=== PATIENT | female | born 1960 | race Caucasian/White ===

== ENCOUNTER → 2017-11-26 08:08 | Outpatient (CLI) | payer BC, SELFPAY ==
--- NOTE | 2017-11-26 | DI.US.S_ITS ---
PROCEDURE: US PELVIC COMPLETE INDICATIONS: FOLLOW UP INTRAMURAL UTERINE FIBROIDS TECHNIQUE: Real-time scanning was performed of the pelvic organs, with image documentation. Additional endovaginal scanning was necessary due to incomplete visualization of the adnexal and endometrial structures by transabdominal scanning. COMPARISON: [facility] Ultrasound, US, US PELVIC+TRANSVAG, 03/27/2016, 13:31. [facility] Ultrasound, US, US PELVIC+TRANSVAG, 06/04/2016, 11:10. FINDINGS: Transabdominal scanning: Limited scanning through the kidneys shows no hydronephrosis. The kidneys measure 10.2 CM right and 12.4 CM left. No pathologic free abdominal or pelvic fluid. Endovaginal scanning: Uterus: Uterus is enlarged in size at 7.4 x 9.1 x 9.6 cm. The endometrium is again obscured by the large mid posterior/fundal intramural fibroid that measures 5.0 x 5.4 x 7.5 cm on current exam compared to 5.6 x 7.3 x 7.5 cm on both prior studies. Ovaries: Ovaries are nonvisualized despite transvaginal imaging. IMPRESSION: 1. Uterine enlargement secondary to large solitary fibroid which is stable to slightly smaller in size. 2. Ovaries are nonvisualized. Dictated by: Ramos Lagos M.D. on 11/26/2017 at 9:10 Approved by: Ramos Lagos M.D. on 11/26/2017 at 9:16
== END ==
PROVIDERS: Family Provider Family Medicine; PCP Family Medicine; Visit Provider Family Medicine
DX: D25.1 Intramural leiomyoma of uterus (principal)
CPT/HCPCS: 76830; 76856

== ENCOUNTER 2017-12-19 08:54 | Emergency (ER) | payer BC, SELFPAY ==
--- NOTE | 2017-12-19 09:42 | ED.HEATRA ---
HPI - Head Injury General Chief complaint: Fall Stated complaint: Fell this morning, hit head Time Seen by Provider: 12/19/17 08:55 Source: patient Mode of arrival: ambulatory Limitations: no limitations History of Present Illness HPI Narrative: Patient is a 57-year-old female who presents after a ground level fall. 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 It is not uncommon for her to fall. She did not lose consciousness she has no nausea vomiting. She has 2 lacerations on the back of her head. She has no other injuries. No neck pain he is not on any blood thinners or anticoagulation MD Complaint: head injury Related Data Home Medications Medication Instructions Recorded Confirmed LEVOTHYROXINE SODIUM (SYNTHROID) 0.125 mg PO QDAY #0 12/14/11 levetiracetam [Keppra] 500 mg PO BID #0 12/14/11 BUDESONIDE NASAL SPRAY (RHINOCORT 1 spray INTRANASAL QDAY #0 12/18/11 AQ 32 MCG) Allergies Allergy/AdvReac Type Severity Reaction Status Date / Time No Known Drug Allergies Allergy Verified 12/19/17 09:48 Review of Systems Review of Systems GENERAL: Denies chills, fatigue, malaise, fever, sweats, travel HEENT: Denies sinus pain, ear pain, sore throat, difficulty swallowing, neck pain RESPIRATORY: Denies dyspnea, cough, wheezing, hemoptysis, sputum. CARDIOVASCULAR: Denies chest pain, palpitations, orthopnea, edema GASTROINTESTINAL: Denies nausea, vomiting, abdominal pain, diarrhea, constipation, melena. : Denies dysuria, frequency, incontinence, hematuria, urinary retention, flank pain. MUSCULOSKELETAL: Denies weakness, joint pain, or bony pain SKIN: See HPI NEUROLOGIC: See HPI PSYCHIATRIC: No concerning psychosocial issues. 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 HEAD: No crepitations no depressions, 2 lacerations 1 is 2.5 cm and 1 is 3 cm NECK: Supple no vertebral tenderness no step-offs full range of motion CARDIOVASCULAR: peripheral pulses in tact, cap refill <2 sec RESPIRATORY: No respiratory distress, speaks in full sentences without difficulty EXTREMITIES: Normal range of motion, no clubbing or edema. Neurovascularly intact NEUROLOGICAL: Cranial nerves II through XII grossly intact. Normal gait and speech. SKIN: Scalp lacerations as described Procedures Laceration Repair Laceration 1: Site: scalp Size (cm): 3 Description: linear Depth: simple, single layer Local Anesthetic: lidocaine 1% and with epi Amount of anesthesia used (mL): 3 Pre-repair: wound explored, irrigated extensively and deep structures intact Skin layer closed with: other (aaron 3) Laceration 2: Site: scalp Size (cm): 2.5 Description: flap Depth: simple, single layer Local Anesthetic: lidocaine 1% and with epi Amount of anesthesia used (mL): 2 Pre-repair: wound explored, irrigated extensively and deep structures intact Skin layer closed with: other (aaron 3) Course Vital Signs - 8 hr 12/19/17 09:43 Temperature 98.4 F Pulse Rate 74 Respiratory Rate 16 Blood Pressure 127/70 H Pulse Oximetry 100 Discharge Plan Departure Patient Disposition: Home Clinical Impression: Laceration of head Instructions: DI for Laceration Repair -- Aaron Activity Restrictions/Additional Instructions: 1. Have your stable removed in 5-7 days, you may go to walk-in clinic, return to the ER or call your primary care physician. 2. No soaking in water including dishes, bathtubs, Lakes, swimming pools etc 3. Signs of infection include, but not limited to, increased redness, increased swelling, increased pain, fever and purulent drainage, if the symptoms should arise, you may need an antibiotic and you should have a reevaluation either by your primary care provider or by the emergency department. Prescriptions: No Action levetiracetam [Keppra] 500 MG tablet 500 mg PO BID Qty: 0 RF: 0 LEVOTHYROXINE SODIUM (SYNTHROID) 0.125 mg PO QDAY Qty: 0 RF: 0 BUDESONIDE NASAL SPRAY (RHINOCORT AQ 32 MCG) 1 spray Intranasal QDAY Qty: 0 RF: 0 Referrals: Adin Morales MD [Primary Care Provider] -
[2017-12-19 09:43] VITALS: BP 127/70; PULSE 74; RESP 16; TEMP 36.9; O2SAT 100
== END 2017-12-19 10:00 | disposition home or self-care (01) ==
PROVIDERS: Emergency Provider Emergency Medicine; Family Provider Family Medicine; PCP Family Medicine
DX: S01.01XA Laceration without foreign body of scalp, initial encounter (principal); W19.XXXA Unspecified fall, initial encounter
CPT/HCPCS: 12002; 99282

== ENCOUNTER → 2018-08-07 10:01 | Outpatient (CLI) | payer OTHER, SELFPAY ==
--- NOTE | 2018-08-07 | DI.MG.S_ITS ---
BILATERAL DIGITAL SCREENING MAMMOGRAM 3D/2D WITH CAD: 08/07/2018 CLINICAL: Routine screening. Comparison is made to exams dated: 07/26/2017 mammogram, 06/24/2015 mammogram, and 11/20/2013 mammogram - [facility]. The tissue of both breasts is extremely dense, which lowers the sensitivity of mammography. Current study was also evaluated with a Computer Aided Detection (CAD) system. There are benign diffuse calcifications in both breasts. No significant masses, calcifications, or other findings are seen in either breast. There has been no significant interval change. IMPRESSION: There is no mammographic evidence of malignancy. A 1 year screening mammogram is recommended. This exam was interpreted at Station ID: [id number]. NOTE: For mammograms, a report in lay terms will be sent to the patient. Approximately 15% of breast malignancies will not be visualized mammographically. In the management of a palpable breast mass, a negative mammogram must not discourage biopsy of a clinically suspicious lesion. Electronically Signed By: Cheng ruiz/evan:08/07/2018 10:54:25 letter sent: Normal Exam ACR BI-RADS Category 2: Benign Finding(s) [id number]
== END ==
PROVIDERS: PCP Family Medicine; Visit Provider Family Medicine
DX: Z12.31 Encounter for screening mammogram for malignant neoplasm of breast (principal)
CPT/HCPCS: 77063; 77067

== ENCOUNTER 2018-09-22 12:33 | Emergency (ER) | payer OTHER, SELFPAY ==
[2018-09-22 12:37] VITALS: BP 120/76; PULSE 69; RESP 15; TEMP 36.8; O2SAT 98; BMI 25.0
--- NOTE | 2018-09-22 14:52 | ED_ITS ---
HPI - Fall General Chief Complaint: Fall Stated Complaint: hit head 30 minutes ago Time Seen by Provider: 09/22/18 13:01 Source: patient Mode of arrival: ambulatory Limitations: no limitations History of Present Illness HPI Narrative: Patient states she was walking with her dog on sidewalk, when the dog jerked away while patient was bending over, and cause the patient to fall flat on her back. Patient struck her head on the sidewalk, and noted a wound, but did not lose consciousness. Patient states that other than scrapes and bruises, she was not hurt any other place. Patient denies any dizziness or headache. No visual changes. No neurologic deficits. No other complaints at this time. Related Data Home Medications Medication Instructions Recorded Confirmed LEVOTHYROXINE SODIUM (SYNTHROID) 0.125 mg PO QDAY #0 12/14/11 levetiracetam [Keppra] 500 mg PO BID #0 12/14/11 BUDESONIDE NASAL SPRAY (RHINOCORT 1 spray INTRANASAL QDAY #0 12/18/11 AQ 32 MCG) Allergies Allergy/AdvReac Type Severity Reaction Status Date / Time No Known Drug Allergies Allergy Verified 09/22/18 12:37 Review of Systems Constitutional Denies chills, Denies fever(s), Denies lethargy and Denies weakness Eyes Denies change in vision, Denies eye discharge, Denies irritation and Denies loss of vision ENT Ears, Nose, Mouth, and Throat: Denies change in voice, Denies neck pain and Denies sore throat Comments: Head injury Cardiovascular Denies chest pain, Denies irregular heart rhythm, Denies lightheadedness, Denies palpitations, Denies dyspnea, Denies dyspnea on exertion and Denies orthopnea Respiratory Denies cough, Denies dyspnea, Denies dyspnea on exertion and Denies wheezing Gastrointestinal Gastrointestinal: Denies abdominal pain, Denies change in bowel habits, Denies diarrhea, Denies nausea and Denies vomiting Genitourinary Denies hematuria, Denies flank pain, Denies urinary incontinence and Denies urinary urgency Musculoskeletal Denies neck pain Integumentary/Breasts Denies pruritus, Denies erythema, Denies rash and Denies wounds Neurologic Denies confusion, Denies loss of vision and Denies weakness Psychiatric Denies anxiety, Denies confusion, Denies depression, Denies homicidal ideation and Denies suicidal ideation Endocrine Denies palpitations Hematologic/Lymphatic Denies easy bruising Allergic/Immunologic Denies wheezing Exam Initial Vital Signs Initial Vital Signs: Vital Signs Temperature 98.3 F 09/22/18 12:37 Pulse Rate 69 09/22/18 12:37 Respiratory Rate 15 09/22/18 12:37 Blood Pressure 120/76 09/22/18 12:37 Pulse Oximetry 98 09/22/18 12:37 Const General: cooperative and well developed Nutritional Appearance: well nourished Orientation: alert, awake, oriented x3 and not confused [facility] Head: normocephalic, No hematoma, laceration (3 cm laceration to superior occipital scalp, just to right of midline), No palpable skull fracture and No raccoon eyes Ears: external ears normal and TM's normal bilaterally Nose: external nose normal and No nasal discharge Face and sinus: sinuses nontender, face symmetric, no sinus tenderness and No dry mucous membranes Mouth: oral mucosae normal and moist mucous membranes Teeth and gingiva: dentition normal Throat: tonsils normal and uvula midline Eyes General: appearance normal, both eyes and all related structures Eyelids: eyelids normal Conjunctivae: conjunctivae normal Sclera: sclerae normal Pupils: PERRL EOM: EOM intact bilaterally Neck Neck: normal visual inspection, trachea midline, No lymphadenopathy, No midline deformity and No JVD Lymphatic: No lymphedema Chest Chest: normal inspection of the chest Resp Effort & Inspection: normal respiratory effort, able to speak in complete sentences, no respiratory distress and no use of accessory muscles Back/Spine/Pelvis Back: No CVA tenderness Cervical Spine: cervical ROM normal and No pain with cervical ROM Thoracic/Lumbar Spine: thoracic and lumbar spine normal to inspection Skin General: no rashes or lesions noted, No jaundice and No petechiae Neuro General: alert, oriented x3, gait normal and no focal motor deficits Speech: speech normal Extrem General: full ROM, no clubbing, cyanosis or edema, no pedal edema and no calf tenderness Psych Appearance: well kempt Mental Status: mental status grossly normal Attitude: cooperative Thought Content: normal and suicidality Judgment: judgment good [facility] 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 We have discussed wound care at home, as well as the need for staple removal in about 10 days. We have also discussed the usual indications for return. Vital Signs - 8 hr 09/22/18 12:37 Temperature 98.3 F Pulse Rate 69 Respiratory Rate 15 Blood Pressure 120/76 Pulse Oximetry 98 MDM - Fall Medical Records Attestation: I reviewed the patient's medical records. Discharge Plan Departure Patient Disposition: Home Clinical Impression: Laceration of scalp Qualifiers: Encounter type: initial encounter Qualified Code(s): S01.01XA - Laceration without foreign body of scalp, initial encounter Discharge Date/Time: 09/22/18 15:12 Instructions: DI for Laceration Repair of the Scalp Activity Restrictions/Additional Instructions: Please keep your wound clean and generally dry. You may let water run over the wound, but do not rub, scrub, or immerse the wound until the aaron are removed. You should have your aaron removed in about 10 days. If you experience swelling or redness spreading away from the wound, or if your wounds split open and drains pus, please have it rechecked. Prescriptions: No Action levetiracetam [Keppra] 500 MG tablet 500 mg PO BID Qty: 0 RF: 0 LEVOTHYROXINE SODIUM (SYNTHROID) 0.125 mg PO QDAY Qty: 0 RF: 0 BUDESONIDE NASAL SPRAY (RHINOCORT AQ 32 MCG) 1 spray Intranasal QDAY Qty: 0 RF: 0 Referrals: Adin Morales MD [Primary Care Provider] -
== END 2018-09-22 15:12 | disposition home or self-care (01) ==
PROVIDERS: Emergency Provider Emergency Medicine; PCP Family Medicine
DX: S01.01XA Laceration without foreign body of scalp, initial encounter (principal); W19.XXXA Unspecified fall, initial encounter
CPT/HCPCS: 12013; 99282

== ENCOUNTER → 2018-09-30 08:30 | Outpatient (CLI) | payer OTHER, SELFPAY ==
--- NOTE | 2018-09-30 08:36 | DI.CT.S_ITS ---
PROCEDURE: CT HEAD/BRAIN W CON INDICATIONS: HISTORY OF SEIZURE RISK OF FALL TECHNIQUE: 4.5 mm thick angled axial sections acquired from the foramen magnum to the vertex after the administration of intravenous contrast, with coronal and sagittal reformats. For radiation dose reduction, the following was used: automated exposure control, adjustment of mA and/or kV according to patient size. COMPARISON: [facility], RG, MRI HEAD W/WO CONTRAST, 06/25/2018, 7:51. FINDINGS: Image quality: Excellent. CSF Spaces: Basal cisterns are patent. No extra-axial fluid collections. Ventricles are normal in size and shape. Brain: Post surgical changes compatible with surgical resection of the anterior-inferior left temporal lobe are stable compared to prior MRI. No midline shift. No intracranial bleeds or masses. No abnormal intracranial enhancement. Ferraro-white interface appears normal. Skull and face: Postsurgical changes compatible with prior left temporal craniotomy. The visualized facial bones appear intact, without suspicious lesions. Multiple skin aaron noted in the posterior right parietal scalp. Sinuses: Visualized sinuses and mastoids are clear. IMPRESSION: 1. No acute intracranial disease process. 2. No abnormal intracranial mass or suspicious postcontrast enhancement. 2. Postsurgical changes stable compared to 06/25/2018. Dictated by: Aye Small MD, PhD on 09/30/2018 at 11:51 Approved by: Aye Small MD, PhD on 09/30/2018 at 11:59
== END ==
PROVIDERS: PCP Family Medicine; Referring Provider Psychiatry & Neurology Neurology; Visit Provider Family Medicine
DX: R56.9 Unspecified convulsions (principal); Z91.81 History of falling
CPT/HCPCS: 70460; Q9967

== ENCOUNTER → 2018-10-22 10:01 | Outpatient (CLI) | payer OTHER, SELFPAY | PROVIDERS: PCP Family Medicine; Visit Provider Family Medicine | DX: M85.88 Other specified disorders of bone density and structure, other site (principal); Z78.0 Asymptomatic menopausal state; E07.9 Disorder of thyroid, unspecified | CPT/HCPCS: 77080 ==

== ENCOUNTER → 2019-02-16 13:08 | Outpatient (CLI) | payer OTHER, SELFPAY ==
--- NOTE | 2019-02-16 | DI.US.S_ITS ---
PROCEDURE: US PERIPH VENOUS LOW EXTREM BI INDICATIONS: BILATERAL LOWER LEG PAIN AND SWELLING TECHNIQUE: Real-time imaging, as well as color and pulse Doppler interrogation, were performed of the deep veins of both legs from the inguinal ligament to the popliteal fossa. COMPARISON: None. FINDINGS: Right: The common femoral, femoral and popliteal veins are normally compressible, and free of intraluminal thrombus. Color and pulse Doppler demonstrate normal phasic intravascular flow. There is normal augmentation response to distal compression maneuver. Left: The common femoral, femoral and popliteal veins are normally compressible, and free of intraluminal thrombus. Color and pulse Doppler demonstrate normal phasic intravascular flow. There is normal augmentation response to distal compression maneuver. Complex Main's cyst measuring 4.6 x 1.0 x 2.1 cm. Cyst IMPRESSION: No deep venous thrombosis identified within the right or left lower extremity. Complex Main's cyst. Dictated by: Lorenzo PARR Interpreted: Aye Small MD on 02/16/2019 at 16:11 Approved by: Aye Small MD, PhD on 02/16/2019 at 16:48
== END ==
PROVIDERS: Family Provider Psychiatry & Neurology Neurology; PCP Family Medicine; Visit Provider Family Medicine
DX: M25.462 Effusion, left knee (principal); M25.461 Effusion, right knee; M25.562 Pain in left knee; M25.561 Pain in right knee; M71.22 Synovial cyst of popliteal space [Baker], left knee
CPT/HCPCS: 93970

== ENCOUNTER → 2019-03-04 08:34 | Outpatient (CLI) | payer OTHER, SELFPAY ==
--- NOTE | 2019-03-04 | DI.US.S_ITS ---
PROCEDURE: US CAROTID DOPPLER BI INDICATIONS: UNSPECIFIED VISUAL DISTURBANCE TECHNIQUE: Color and pulse Doppler interrogation was performed of both carotid systems, with image documentation and velocity measurements. COMPARISON: None. FINDINGS: Stenosis calculations are based on SRU (Society of Radiologists in Ultrasound) criteria. Right side: Brachial blood pressure: 119/71 mm Hg. Common carotid artery peak systolic velocity: 91 cm/sec. Internal carotid artery peak systolic velocity: 96 cm/sec. Internal carotid artery end diastolic velocity: 40 cm/sec. External carotid artery peak systolic velocity: 67 cm/sec. ICA/CCA peak systolic ratio: 1.1 Ferraro scale imaging description: Minimal scattered plaque. Percent internal carotid artery stenosis: Less than 50%. Vertebral artery: Flow direction is antegrade. Left side: Brachial blood pressure: 109/70 mm Hg. Common carotid artery peak systolic velocity: 86 cm/sec. Internal carotid artery peak systolic velocity: 87 cm/sec. Internal carotid artery end diastolic velocity: 32 cm/sec. External carotid artery peak systolic velocity: 56 cm/sec. ICA/CCA peak systolic ratio: 1.0. Ferraro scale imaging description: Minimal scattered plaque. Percent internal carotid artery stenosis: Less than 50%. Vertebral artery: Flow direction is antegrade. IMPRESSION: Less than 50% bilateral internal carotid artery stenosis. Dictated by: Lorenzo Mendes RRA Interpreted: Aye Small MD on 03/04/2019 at 12:59 Approved by: Aye Small MD, PhD on 03/04/2019 at 13:26
== END ==
PROVIDERS: Family Provider Psychiatry & Neurology Neurology; PCP Family Medicine; Visit Provider Family Medicine
DX: I65.23 Occlusion and stenosis of bilateral carotid arteries (principal); H53.9 Unspecified visual disturbance; R27.9 Unspecified lack of coordination; G25.82 Stiff-man syndrome
CPT/HCPCS: 93880

== ENCOUNTER → 2019-04-04 09:14 | Outpatient (CLI) | payer OTHER, SELFPAY ==
[2019-04-04 10:36] LABS: Add Manual Diff / Slide Review NO; Basophils Absolute Auto 0 /uL (0-100); Basophils Percent Auto 0.9 % (0-2); Eosinophils Absolute Auto 100 /uL (0-450); Eosinophils Percent Auto 1.2 % (2-4); Hemoglobin 13.9 g/dL (12.0-16.0); Lymphocytes Absolute Auto 1600 /uL (1100-4500); Lymphocytes Percent Auto 37.2 % (25-40); Mean Corpuscular HGB Conc 35.6 % (30-36); Mean Corpuscular Hemoglobin 32.6 PG (26-34); Mean Corpuscular Volume 91.6 fL (80-100); Monocytes Absolute Auto 300 /uL (0-900); Monocytes Percent Auto 7.1 % (3-14); Neutrophils Absolute Auto 2300 /uL (1500-7000); Neutrophils Percent Auto 53.6 % (50-75); Platelet Count 204 X10^3/uL (150-400); Red Blood Cell Count 4.25 X10^6/uL (4.0-5.2); Red Cell Distribution Width 12.5 % (11.6-14.8); White Blood Cell Count 4.3 X10^3/uL (4.5-11.0)
[2019-04-04 10:39] LABS: Cholesterol 226 mg/dL (140-199); HDL Cholesterol 63 mg/dL (40-60); LDL Cholesterol Calculated 150 mg/dL (<100); Triglycerides 64 mg/dL (35-150)
[2019-04-04 11:56] LABS: Vitamin D 25 Hydroxy (D3) 40.6 ng/mL (30.0-100.0)
[2019-04-04 12:11] LABS: TSH w/ Reflex to FT4 2.56 uIU/mL (0.47-4.68)
== END ==
PROVIDERS: PCP Family Medicine; Visit Provider Family Medicine
DX: Z13.220 Encounter for screening for lipoid disorders (principal); E03.9 Hypothyroidism, unspecified; E55.9 Vitamin D deficiency, unspecified; G25.82 Stiff-man syndrome; G40.909 Epilepsy, unspecified, not intractable, without status epilepticus
CPT/HCPCS: 36415; 80061; 82306; 84443; 85025

== ENCOUNTER 2020-02-17 08:15 | Outpatient (RCR) | payer OTHER, SELFPAY ==
--- NOTE | 2020-02-01 14:12 | PT.OIE ---
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) Vision disorder (Chronic) Vitamin deficiency (Acute) Past Surgical History (Last Updated 04/17/19 @ 21:26 by Elvia Kruger) Anesthesia (Resolved) Fibroid tumor (Resolved) H/O brain surgery (Acute ~1990) History of surgery (Resolved) Visit Care Team Role Provider Type Mamadou Russell DO Primary Care Provider Physician Specialty: Family Practice Address: [address] [place] [address] Email: Attending Provider Referring Provider Specialty: Address: Phone: Fax: Email: Physical Therapy Initial Evaluation PT-OP-A Visit Information Start: 02/01/20 07:29 Freq: Status: Active Protocol: Document 02/01/20 08:18 MB (Rec: 02/01/20 08:43 MB [id number]) Out-Patient Physical Therapy Visit Information Visit Information Visit Type Initial Evaluation Visit Note 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 She has a new neurologist, Dr. Wallace. Pt has history of seizures since her 30s. Her last seizure was longer than a year ago. 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 She saw a neuro opthamalogsit for aura migraine that was changing colors. She cannot state when her last headache was. She reports fairly often. 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 Medications include Keppra for seizures, valium for pain ( she takes 2.5 pills a day), synthroid and baclofen. Pt uses walking stick on the right to help with her balance . Pt's last fall was over a year ago. She cannot describe her dizziness. She had two hosptial ED visits to have aaron on head after hitting head with falling. She denies syncopal episodes. Pt reports LOB is a problem when her joints stiffen up. She has not had orthopedic surgery. Pt cannot rate pain. She reports right groin pain, ear pain. There's no way to explain where it it going to show up and why. She would like to work on lowering herself down and getting back up. Pt has an inversion table and she lies flat and that helps. Stopping when she is sewing helps. She has trouble with stairs. She cannot depend on her left leg. She has a couple of steps to get into the house. She uses the right rail to ascend. She describes a sitting elliptical but states that she cannot figure out the arms. She has trouble walking her dog with leash in left hand and stick in right hand. If she does not have the dog, she uses both sticks. Pt is a poor historian. She changes her answers often when PT seeks clarification. She reports old right scapular and elbow fractures. She states she has exercises she is doing from old PT course but she does not know where the handouts are and she cannot demonstrate or describe the exercises. Prior Treatments and Tests PT for stiff person syndrome 5 years ago at this clinic. She worked on walking. Treatment Goals Patient/Caregiver Goals To be able to do the stairs better and to get up and down better. PT-OP-C Subjective Start: 02/01/20 07:29 Freq: Status: Active Protocol: Document 02/01/20 08:18 MB (Rec: 02/01/20 08:43 MB [id number]) OP-PT Subjective Patient Comments Patient Comments See history of current condition. Patient Reported Progress Improving PT-OP-D Balance Start: 02/01/20 07:29 Freq: Status: Active Protocol: Document 02/01/20 08:18 MB (Rec: 02/01/20 14:11 MB [id number]) OP-PT Balance Assessment Sitting Balance Static Sitting Balance Ability Good Dynamic Sitting Balance Ability Fair Sitting Balance Comments UE support for scooting up and down the mat Standing Balance Static Standing Balance Ability Fair Dynamic Standing Balance Ability Poor Standing Balance Comments UE support and CGA from PT for dynamic standing balance. Romberg EO 30 sec and EC 3 sec before LOB and pt takes a side step and PT provides light asst to prevent fall Balance Tests Romberg Romberg Romberg EO 30 sec and EC 3 sec before LOB Capps Fall Scale Copyright Permission PT-OP-G Mobility & Gait Start: 02/01/20 07:29 Freq: Status: Active Protocol: Document 02/01/20 08:18 MB (Rec: 02/01/20 14:11 MB [id number]) OP Gait Assessment Gait Gait Assistance Required: Standby Assistance Distance (Feet) 1,550 Assistive Devices Assistive Device Gait Belt Factors Limiting Gait Function Factors Limiting Gait Function Poor Balance Comments Gait Comments Pt carries and occ uses walking stick in right hand. Quick kellee and occ unequal stance time for 6MWT Stair Climbing Evaluation Evaluation Level of Assist On Stairs Standby Assistance Devices Stair Climbing Assistive Devices Left Railing Technique/Endurance Stair Climbing Direction Ascend and Descend Stair Climbing Technique Step Over Step Number of Steps Climbed 3 Stair Climbing Set # Repetitions (reps) 1 Comments Stair Climbing Comments Pt holds onto walking stick in right hand for ascend and rail in left hand for descend. She does not demonstrate like she says she performs steps at home despite PT cues that she said that she uses the rail on the right to ascend at home. Once again, pt with inconsistent reports of baseline PT-OP-J Posture/Palpation/Skin Start: 02/01/20 07:29 Freq: Status: Active Protocol: Document 02/01/20 08:18 MB (Rec: 02/01/20 14:11 MB [id number]) Posture Evaluation Comments Posture Comments Standing: wide BASHIR to assist with balance, Dowager's hump, pronounced thoracic kyphotic posture and increased lumbar lordosis, left iliac crest 1/2 higher than the right, right shoulder lower than the left PT-OP-K Range of Motion Start: 02/01/20 07:29 Freq: Status: Active Protocol: Document 02/01/20 08:18 MB (Rec: 02/01/20 14:11 MB [id number]) Shoulder Goniometric Range of Motion Shoulder ROM Limitations Comments In supine, B shoulder flexion overhead with right shoulder 10 deg less than the left Ankle and Foot Goniometric Range of Motion Ankle and Foot ROM Limitations Comments Pt presents with B decreased DF and great toe extension in supine PT-OP-M Strength Start: 02/01/20 07:29 Freq: Status: Active Protocol: Document 02/01/20 08:18 MB (Rec: 02/01/20 14:11 MB [id number]) Hip Strength Hip Manual Muscle Testing Left Flexion (L2) 3+ Fair+ Abduction 4 Good Comments Pt supine Right Flexion (L2) 3+ Fair+ Abduction 4 Good Comments Pt supine Knee Strength Knee Manual Muscle Testing Left Flexion (S2) 4 Good Extension (L3) 4 Good Right Flexion (S2) 4 Good Extension (L3) 4 Good Ankle/Foot Strength Ankle and Foot Manual Muscle Testing Left Dorsiflexion (L4) 4 Good Comments In available range Right Dorsiflexion (L4) 4 Good Comments In available range Toe Strength Toe Manual Muscle Testing Left Great Toe Extension 3+ Fair+ Right Great Toe Extension 3+ Fair+ PT-OP-T Assessment and Plan Start: 02/01/20 07:29 Freq: Status: Active Protocol: Document 02/01/20 08:18 MB (Rec: 02/01/20 14:11 MB [id number]) Physical Therapy Assessment Rehab Potential Rehabilitation Potential Fair Evaluation Complexity Number of Personal Factors/Comorbidities 3 or More Number of Body Systems Impaired 3 Clinical Presentation at Evaluation Evolving Impairments Impairments Activity Tolerance,Balance, Coordination,Functional Activities,Functional Mobility ,Gait,Pain,Posture,ROM,Soft Tissue Mobility,Strength Other Impairments Pt presents with cognitive impairment and trouble communicating consistently with PMH and mobility questioning. Her medical presentation is evolving in setting of autoimmune disease and history of brain surgery, TBI and seizures. She has musculoskeletal and neuromuscular contributors to presentation. She has vague reports of pain and cannot state what makes pain better or worse and she does not localize pain well. Similarly, she states she is doing exercises from previous PT courses at home but she does not know if she has handouts and cannot demonstrate or verbalize exercises. Other Concerns Fall Risk Yes Goals 5 Skilled Nursing Goal (LTG) Pt will perform at least 10 reps sit to stand without UE support in 30 sec to improve reports of trouble getting up and down by 03/21/2020. LTG Duration 6 weeks 4 Skilled Nursing Goal (LTG) Pt will ascend and descend 3 steps x3 with 1 rail and no other AD to improve confidence with stair mobility by 2019. LTG Duration 6 weeks 3 Skilled Nursing Goal (LTG) Pt will gait train 1600 feet without AD in 6 minutes to improve community ambulation and decrease fall risk by . LTG Duration 6 weeks 2 Skilled Nursing Goal (LTG) Pt will perform progressive HEP with I including flexibility, strengthening, gait and balance exercises to improve safety and balance by 03/21/2020. LTG Duration 6 weeks 1 Thermometer Tester Goal (LTG) Pt will perform WNLs on a standardized balance test to decrease fall risk by 2019. LTG Duration 6 weeks Assessment Summary Assessment Pt is a 70 y/o female presenting with poor cognition and difficulty communicating her PMH, complaints of pain and PLOF during assessment. She changes her responses often when PT attempts to understand what exercises she was doing at home, how she was performing stair mobility and where she is hurting and what causes her reports of pain and dizziness. She presents with LE weakness, poor balance and inconsistent use of walking stick with gait and stair mobility. She states that she is doing better since previous PT courses and that she does not know why her neurologist wants her to have PT again. She does express goal of being able to go up and down the stairs better and to get up and down better. PT sets balance, stair and sit to stand goals and will initiate PT to improve transfers, balance, gait, stair mobility and strength. Pt only wishes to keep the treatments that she has scheduled and so PT course will be short. Barriers to PT include autoimmune disease and cognitive impairment. Physical Therapy Plan Frequency and Duration Frequency of Treatment 2x/Week Duration of Treatment 6 weeks Plan of Care Start Date 02/01/20 Plan of Care End Date 03/21/20 Therapeutic Interventions Therapeutic Interventions Balance Training,Canalithic Repositioning,Coordination Training,Gait Training,Home Exercise Program,Manual Therapy,Neuromuscular Re- education,Patient/Caregiver Education,Self-Care/Home Management,Soft Tissue Mobilization,Therapeutic Activities,Therapeutic Exercises Modalities Cold Pack/Ice Massage,Hot Packs Next Visit Focus/Plan Next Note Type Treatment Note Next Visit Plan Initiate sit to stands and a balance exercise, check again if pt can demonstrate any exercises she is doing at home
--- NOTE | 2020-02-03 09:01 | PT.OTN ---
Current Diagnoses Stiff-man syndrome (02/03/20) Ataxic gait (02/03/20) Physical Therapy Treatment Note PT-OP-A Visit Information Start: 02/01/20 07:29 Freq: Status: Active Protocol: Document 02/03/20 08:16 MB (Rec: 02/03/20 09:01 MB [id number]) Out-Patient Physical Therapy Visit Information Visit Information Visit Type Treatment Note Visit Start Time 08:16 Visit Stop Time 09:00 Total Visit Minutes 44 Visit Number 2 PT-OP-B Current Condition Start: 02/01/20 07:29 Freq: Status: Active Protocol: Document 02/01/20 08:18 MB (Rec: 02/01/20 08:43 MB [id number]) Current Condition History of Current Condition Onset Date Greater than 20 years ago Current Complaints Difficulty with left leg and lowering self down and getting back up History of Current Condition 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 She has a new neurologist, Dr. Wallace. Pt has history of seizures since her 30s. Her last seizure was longer than a year ago. 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 She saw a neuro opthamalogsit for aura migraine that was changing colors. She cannot state when her last headache was. She reports fairly often. 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 Medications include Keppra for seizures, valium for pain ( she takes 2.5 pills a day), synthroid and baclofen. Pt uses walking stick on the right to help with her balance . Pt's last fall was over a year ago. She cannot describe her dizziness. She had two hosptial ED visits to have aaron on head after hitting head with falling. She denies syncopal episodes. Pt reports LOB is a problem when her joints stiffen up. She has not had orthopedic surgery. Pt cannot rate pain. She reports right groin pain, ear pain. There's no way to explain where it it going to show up and why. She would like to work on lowering herself down and getting back up. Pt has an inversion table and she lies flat and that helps. Stopping when she is sewing helps. She has trouble with stairs. She cannot depend on her left leg. She has a couple of steps to get into the house. She uses the right rail to ascend. She describes a sitting elliptical but states that she cannot figure out the arms. She has trouble walking her dog with leash in left hand and stick in right hand. If she does not have the dog, she uses both sticks. Pt is a poor historian. She changes her answers often when PT seeks clarification. She reports old right scapular and elbow fractures. She states she has exercises she is doing from old PT course but she does not know where the handouts are and she cannot demonstrate or describe the exercises. Prior Treatments and Tests PT for stiff person syndrome 5 years ago at this clinic. She worked on walking. Treatment Goals Patient/Caregiver Goals To be able to do the stairs better and to get up and down better. PT-OP-C Subjective Start: 02/01/20 07:29 Freq: Status: Active Protocol: Document 02/03/20 08:16 MB (Rec: 02/03/20 09:01 MB [id number]) OP-PT Subjective Patient Comments Patient Comments Pt brings in handout about SPS . She does not communicate further concerns this morning. PT-OP-D Balance Start: 02/01/20 07:29 Freq: Status: Active Protocol: Document 02/01/20 08:18 MB (Rec: 02/01/20 14:11 MB [id number]) OP-PT Balance Assessment Sitting Balance Static Sitting Balance Ability Good Dynamic Sitting Balance Ability Fair Sitting Balance Comments UE support for scooting up and down the mat Standing Balance Static Standing Balance Ability Fair Dynamic Standing Balance Ability Poor Standing Balance Comments UE support and CGA from PT for dynamic standing balance. Romberg EO 30 sec and EC 3 sec before LOB and pt takes a side step and PT provides light asst to prevent fall Balance Tests Romberg Romberg Romberg EO 30 sec and EC 3 sec before LOB Capps Fall Scale Copyright Permission PT-OP-G Mobility & Gait Start: 02/01/20 07:29 Freq: Status: Active Protocol: Document 02/01/20 08:18 MB (Rec: 02/01/20 14:11 MB [id number]) OP Gait Assessment Gait Gait Assistance Required: Standby Assistance Distance (Feet) 1,550 Assistive Devices Assistive Device Gait Belt Factors Limiting Gait Function Factors Limiting Gait Function Poor Balance Comments Gait Comments Pt carries and occ uses walking stick in right hand. Quick kellee and occ unequal stance time for 6MWT Stair Climbing Evaluation Evaluation Level of Assist On Stairs Standby Assistance Devices Stair Climbing Assistive Devices Left Railing Technique/Endurance Stair Climbing Direction Ascend and Descend Stair Climbing Technique Step Over Step Number of Steps Climbed 3 Stair Climbing Set # Repetitions (reps) 1 Comments Stair Climbing Comments Pt holds onto walking stick in right hand for ascend and rail in left hand for descend. She does not demonstrate like she says she performs steps at home despite PT cues that she said that she uses the rail on the right to ascend at home. Once again, pt with inconsistent reports of baseline PT-OP-J Posture/Palpation/Skin Start: 02/01/20 07:29 Freq: Status: Active Protocol: Document 02/01/20 08:18 MB (Rec: 02/01/20 14:11 MB [id number]) Posture Evaluation Comments Posture Comments Standing: wide BASHIR to assist with balance, Dowager's hump, pronounced thoracic kyphotic posture and increased lumbar lordosis, left iliac crest 1/2 higher than the right, right shoulder lower than the left PT-OP-K Range of Motion Start: 02/01/20 07:29 Freq: Status: Active Protocol: Document 02/01/20 08:18 MB (Rec: 02/01/20 14:11 MB [id number]) Shoulder Goniometric Range of Motion Shoulder ROM Limitations Comments In supine, B shoulder flexion overhead with right shoulder 10 deg less than the left Ankle and Foot Goniometric Range of Motion Ankle and Foot ROM Limitations Comments Pt presents with B decreased DF and great toe extension in supine PT-OP-M Strength Start: 02/01/20 07:29 Freq: Status: Active Protocol: Document 02/01/20 08:18 MB (Rec: 02/01/20 14:11 MB [id number]) Hip Strength Hip Manual Muscle Testing Left Flexion (L2) 3+ Fair+ Abduction 4 Good Comments Pt supine Right Flexion (L2) 3+ Fair+ Abduction 4 Good Comments Pt supine Knee Strength Knee Manual Muscle Testing Left Flexion (S2) 4 Good Extension (L3) 4 Good Right Flexion (S2) 4 Good Extension (L3) 4 Good Ankle/Foot Strength Ankle and Foot Manual Muscle Testing Left Dorsiflexion (L4) 4 Good Comments In available range Right Dorsiflexion (L4) 4 Good Comments In available range Toe Strength Toe Manual Muscle Testing Left Great Toe Extension 3+ Fair+ Right Great Toe Extension 3+ Fair+ PT-OP-Q Treatments Start: 02/01/20 07:29 Freq: Status: Active Protocol: Document 02/03/20 08:16 MB (Rec: 02/03/20 09:01 MB [id number]) Cardio Equipment Recumbent Elliptical (FFFavs) Duration (Minutes) 10 Resistance 7 Therapeutic Exercises Supine Exercises Hamstring stretch Side bilateral Comments B, sec 45 hold, cues for positioning Ramon stretch Side bilateral Comments 45 sec B, core engagement Sitting Exercises Sit to stands Comments 10 total, used hands, did not use hands, raised seat, better Standing Exercises Gastroc stretches Side bilateral Comments UE support on wall and 45 sec, 2 reps Manual Therapy Treatment Other Other Manual Treatments Black KT to support left knee with c strip under patella and B I strips medial and lateral knee PT-OP-T Assessment and Plan Start: 02/01/20 07:29 Freq: Status: Active Protocol: Document 02/03/20 08:16 MB (Rec: 02/03/20 09:01 MB [id number]) Physical Therapy Assessment Rehab Potential Rehabilitation Potential Fair Evaluation Complexity Number of Personal Factors/Comorbidities 3 or More Number of Body Systems Impaired 3 Clinical Presentation at Evaluation Evolving Impairments Impairments Activity Tolerance,Balance, Coordination,Functional Activities,Functional Mobility ,Gait,Pain,Posture,ROM,Soft Tissue Mobility,Strength Other Impairments Pt presents with cognitive impairment and trouble communicating consistently with PMH and mobility questioning. Her medical presentation is evolving in setting of autoimmune disease and history of brain surgery, TBI and seizures. She has musculoskeletal and neuromuscular contributors to presentation. She has vague reports of pain and cannot state what makes pain better or worse and she does not localize pain well. Similarly, she states she is doing exercises from previous PT courses at home but she does not know if she has handouts and cannot demonstrate or verbalize exercises. Other Concerns Fall Risk Yes Goals 5 Care Home Goal (LTG) Pt will perform at least 10 reps sit to stand without UE support in 30 sec to improve reports of trouble getting up and down by 03/21/2020. LTG Duration 6 weeks 4 Coal Inspector Goal (LTG) Pt will ascend and descend 3 steps x3 with 1 rail and no other AD to improve confidence with stair mobility by 2019. LTG Duration 6 weeks 3 Care Home Goal (LTG) Pt will gait train 1600 feet without AD in 6 minutes to improve community ambulation and decrease fall risk by . LTG Duration 6 weeks 2 Coal Inspector Goal (LTG) Pt will perform progressive HEP with I including flexibility, strengthening, gait and balance exercises to improve safety and balance by 03/21/2020. LTG Duration 6 weeks 1 Care Home Goal (LTG) Pt will perform WNLs on a standardized balance test to decrease fall risk by 2019. LTG Duration 6 weeks Assessment Summary Assessment Pt called yesterday and communicated with front end application developer that she wished PT to look up the definition of SPS. She communicated about walking in circles for evaluation. PT calls pt to communicate PT findings, concerns and plan. Pt communicates that she called neurologist and she mentioned that PT asked her to stop medication. This date, PT re-ed pt that PT will not make any medication recommendations and she should talk with doctor about any medication questions. PT re- communicates plan for working on getting up, sit to stands, flexibility and balance. Pt verbalizes agreement. PT reviews case study from PT journal about treatment for pt with SPS and hippocampus contribution to memory. Ed pt to remove KT if any itching or pain and to stop any exercises that causes pain. Barriers to PT include autoimmune disease and cognitive impairment. Today, pt reports right knee discomfort after using recumbent stepper. Physical Therapy Plan Frequency and Duration Frequency of Treatment 2x/Week Duration of Treatment 6 weeks Plan of Care Start Date 02/01/20 Plan of Care End Date 03/21/20 Therapeutic Interventions Therapeutic Interventions Balance Training,Canalithic Repositioning,Coordination Training,Gait Training,Home Exercise Program,Manual Therapy,Neuromuscular Re- education,Patient/Caregiver Education,Self-Care/Home Management,Soft Tissue Mobilization,Therapeutic Activities,Therapeutic Exercises Modalities Cold Pack/Ice Massage,Hot Packs Next Visit Focus/Plan Next Note Type Treatment Note Next Visit Plan Progress flexibility, balance and strengthening exercises
--- NOTE | 2020-02-08 09:00 | PT.OTN ---
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) Physical Therapy Treatment Note PT-OP-A Visit Information Start: 02/01/20 07:29 Freq: Status: Active Protocol: Document 02/08/20 08:20 SP (Rec: 02/08/20 09:02 SP [id number]) Out-Patient Physical Therapy Visit Information Visit Information Visit Type Treatment Note Visit Start Time 08:20 Visit Stop Time 09:00 Total Visit Minutes 40 Visit Number 3 Number of TAMALE MAKER Visits 1 PT-OP-B Current Condition Start: 02/01/20 07:29 Freq: Status: Active Protocol: Document 02/01/20 08:18 MB (Rec: 02/01/20 08:43 MB [id number]) Current Condition History of Current Condition Onset Date Greater than 20 years ago Current Complaints Difficulty with left leg and lowering self down and getting back up History of Current Condition 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 She has a new neurologist, Dr. Wallace. Pt has history of seizures since her 30s. Her last seizure was longer than a year ago. 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 She saw a neuro opthamalogsit for aura migraine that was changing colors. She cannot state when her last headache was. She reports fairly often. 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 Medications include Keppra for seizures, valium for pain ( she takes 2.5 pills a day), synthroid and baclofen. Pt uses walking stick on the right to help with her balance . Pt's last fall was over a year ago. She cannot describe her dizziness. She had two hosptial ED visits to have aaron on head after hitting head with falling. She denies syncopal episodes. Pt reports LOB is a problem when her joints stiffen up. She has not had orthopedic surgery. Pt cannot rate pain. She reports right groin pain, ear pain. There's no way to explain where it it going to show up and why. She would like to work on lowering herself down and getting back up. Pt has an inversion table and she lies flat and that helps. Stopping when she is sewing helps. She has trouble with stairs. She cannot depend on her left leg. She has a couple of steps to get into the house. She uses the right rail to ascend. She describes a sitting elliptical but states that she cannot figure out the arms. She has trouble walking her dog with leash in left hand and stick in right hand. If she does not have the dog, she uses both sticks. Pt is a poor historian. She changes her answers often when PT seeks clarification. She reports old right scapular and elbow fractures. She states she has exercises she is doing from old PT course but she does not know where the handouts are and she cannot demonstrate or describe the exercises. Prior Treatments and Tests PT for stiff person syndrome 5 years ago at this clinic. She worked on walking. Treatment Goals Patient/Caregiver Goals To be able to do the stairs better and to get up and down better. PT-OP-C Subjective Start: 02/01/20 07:29 Freq: Status: Active Protocol: Document 02/08/20 08:20 SP (Rec: 02/08/20 09:02 SP [id number]) OP-PT Subjective Patient Comments Patient Comments Pt reports no concerns or changes since last tx. Pt reports having her infusion 2 days every 2 weeks, going today. Pt reported main goal wants to get on /off floor. PT-OP-D Balance Start: 02/01/20 07:29 Freq: Status: Active Protocol: Document 02/01/20 08:18 MB (Rec: 02/01/20 14:11 MB [id number]) OP-PT Balance Assessment Sitting Balance Static Sitting Balance Ability Good Dynamic Sitting Balance Ability Fair Sitting Balance Comments UE support for scooting up and down the mat Standing Balance Static Standing Balance Ability Fair Dynamic Standing Balance Ability Poor Standing Balance Comments UE support and CGA from PT for dynamic standing balance. Romberg EO 30 sec and EC 3 sec before LOB and pt takes a side step and PT provides light asst to prevent fall Balance Tests Romberg Romberg Romberg EO 30 sec and EC 3 sec before LOB Capps Fall Scale Copyright Permission PT-OP-G Mobility & Gait Start: 02/01/20 07:29 Freq: Status: Active Protocol: Document 02/01/20 08:18 MB (Rec: 02/01/20 14:11 MB [id number]) OP Gait Assessment Gait Gait Assistance Required: Standby Assistance Distance (Feet) 1,550 Assistive Devices Assistive Device Gait Belt Factors Limiting Gait Function Factors Limiting Gait Function Poor Balance Comments Gait Comments Pt carries and occ uses walking stick in right hand. Quick kellee and occ unequal stance time for 6MWT Stair Climbing Evaluation Evaluation Level of Assist On Stairs Standby Assistance Devices Stair Climbing Assistive Devices Left Railing Technique/Endurance Stair Climbing Direction Ascend and Descend Stair Climbing Technique Step Over Step Number of Steps Climbed 3 Stair Climbing Set # Repetitions (reps) 1 Comments Stair Climbing Comments Pt holds onto walking stick in right hand for ascend and rail in left hand for descend. She does not demonstrate like she says she performs steps at home despite PT cues that she said that she uses the rail on the right to ascend at home. Once again, pt with inconsistent reports of baseline PT-OP-J Posture/Palpation/Skin Start: 02/01/20 07:29 Freq: Status: Active Protocol: Document 02/01/20 08:18 MB (Rec: 02/01/20 14:11 MB [id number]) Posture Evaluation Comments Posture Comments Standing: wide BASHIR to assist with balance, Dowager's hump, pronounced thoracic kyphotic posture and increased lumbar lordosis, left iliac crest 1/2 higher than the right, right shoulder lower than the left PT-OP-K Range of Motion Start: 02/01/20 07:29 Freq: Status: Active Protocol: Document 02/01/20 08:18 MB (Rec: 02/01/20 14:11 MB [id number]) Shoulder Goniometric Range of Motion Shoulder ROM Limitations Comments In supine, B shoulder flexion overhead with right shoulder 10 deg less than the left Ankle and Foot Goniometric Range of Motion Ankle and Foot ROM Limitations Comments Pt presents with B decreased DF and great toe extension in supine PT-OP-M Strength Start: 02/01/20 07:29 Freq: Status: Active Protocol: Document 02/01/20 08:18 MB (Rec: 02/01/20 14:11 MB [id number]) Hip Strength Hip Manual Muscle Testing Left Flexion (L2) 3+ Fair+ Abduction 4 Good Comments Pt supine Right Flexion (L2) 3+ Fair+ Abduction 4 Good Comments Pt supine Knee Strength Knee Manual Muscle Testing Left Flexion (S2) 4 Good Extension (L3) 4 Good Right Flexion (S2) 4 Good Extension (L3) 4 Good Ankle/Foot Strength Ankle and Foot Manual Muscle Testing Left Dorsiflexion (L4) 4 Good Comments In available range Right Dorsiflexion (L4) 4 Good Comments In available range Toe Strength Toe Manual Muscle Testing Left Great Toe Extension 3+ Fair+ Right Great Toe Extension 3+ Fair+ PT-OP-Q Treatments Start: 02/01/20 07:29 Freq: Status: Active Protocol: Document 02/08/20 08:20 SP (Rec: 02/08/20 09:02 SP [id number]) Cardio Equipment Recumbent Elliptical ([employer] X-Change) Duration (Minutes) 5 Resistance 7>5 Seat Position 9 Therapeutic Exercises Supine Exercises Hamstring stretch Supine Exercise Name to challenging holding behind leg Side bilateral Reps/Minutes strap (TB #6 add HEP) Comments B, sec 45 hold, cues for set up and proper positioning Ramon stretch Side bilateral Reps/Minutes 45 sec Comments core engagement, cued set up at EOB and knee flex quad stretch Sitting Exercises Sit to stands Equipment Used uses hands, raised seat- better Reps/Minutes x10 Comments crepitis but no pain, cued hip hinge- better Standing Exercises band walk Standing Exercise Name f/b/s Resistance TB #1 loop Equipment Used rail Reps/Minutes 2 - 20ft lengths Comments cued upright stationary posture, no drag trailing leg- no pain, stable Gastroc stretches Side bilateral Comments UE support on wall and 45 sec, 2 reps PT-OP-T Assessment and Plan Start: 02/01/20 07:29 Freq: Status: Active Protocol: Document 02/08/20 08:20 SP (Rec: 02/08/20 09:02 SP [id number]) Physical Therapy Assessment Goals 5 Halfway Goal (LTG) Pt will perform at least 10 reps sit to stand without UE support in 30 sec to improve reports of trouble getting up and down by 03/21/2020. LTG Duration 6 weeks 4 Gas Plant Specialist Goal (LTG) Pt will ascend and descend 3 steps x3 with 1 rail and no other AD to improve confidence with stair mobility by 2019. LTG Duration 6 weeks 3 Gas Plant Specialist Goal (LTG) Pt will gait train 1600 feet without AD in 6 minutes to improve community ambulation and decrease fall risk by . LTG Duration 6 weeks 2 Gas Plant Specialist Goal (LTG) Pt will perform progressive HEP with I including flexibility, strengthening, gait and balance exercises to improve safety and balance by 03/21/2020. LTG Duration 6 weeks 1 Gas Plant Specialist Goal (LTG) Pt will perform WNLs on a standardized balance test to decrease fall risk by 2019. LTG Duration 6 weeks Assessment Summary Assessment Pt required increased time with set up, proper form for HEP stretches, changed to using strap HS due to challenging UE support, improved. Pt requires hand out with cuing for recall. Pt has difficulty with motor planning and recall to instructions. Bands walks stated had done in past and knows well, stable cued slow eccentric control so added to HEP today. Continue review HEP next tx. Physical Therapy Plan Frequency and Duration Frequency of Treatment 2x/Week Duration of Treatment 6 weeks Plan of Care Start Date 02/01/20 Plan of Care End Date 03/21/20 Therapeutic Interventions Therapeutic Interventions Balance Training,Canalithic Repositioning,Coordination Training,Gait Training,Home Exercise Program,Manual Therapy,Neuromuscular Re- education,Patient/Caregiver Education,Self-Care/Home Management,Soft Tissue Mobilization,Therapeutic Activities,Therapeutic Exercises Modalities Cold Pack/Ice Massage,Hot Packs Next Visit Focus/Plan Next Note Type Treatment Note Next Visit Plan Assess response to band walk and HEP stretching last tx. Continue review HEP for recall and proper form, decreased recall today. Progress flexibility, balance and strengthening exercises
--- NOTE | 2020-02-10 08:10 | PT.OTN ---
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 (02/10/20) Physical Therapy Treatment Note PT-OP-A Visit Information Start: 02/01/20 07:29 Freq: Status: Active Protocol: Document 02/10/20 07:31 MB (Rec: 02/10/20 08:09 MB [id number]) Out-Patient Physical Therapy Visit Information Visit Information Visit Type Treatment Note Visit Start Time 07:31 Visit Stop Time 08:09 Total Visit Minutes 38 Visit Number 4 Number of LINUX DEVELOPER Visits 0 PT-OP-B Current Condition Start: 02/01/20 07:29 Freq: Status: Active Protocol: Document 02/01/20 08:18 MB (Rec: 02/01/20 08:43 MB [id number]) Current Condition History of Current Condition Onset Date Greater than 20 years ago Current Complaints Difficulty with left leg and lowering self down and getting back up History of Current Condition 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 She has a new neurologist, Dr. Wallace. Pt has history of seizures since her 30s. Her last seizure was longer than a year ago. 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 She saw a neuro opthamalogsit for aura migraine that was changing colors. She cannot state when her last headache was. She reports fairly often. 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 Medications include Keppra for seizures, valium for pain ( she takes 2.5 pills a day), synthroid and baclofen. Pt uses walking stick on the right to help with her balance . Pt's last fall was over a year ago. She cannot describe her dizziness. She had two hosptial ED visits to have aaron on head after hitting head with falling. She denies syncopal episodes. Pt reports LOB is a problem when her joints stiffen up. She has not had orthopedic surgery. Pt cannot rate pain. She reports right groin pain, ear pain. There's no way to explain where it it going to show up and why. She would like to work on lowering herself down and getting back up. Pt has an inversion table and she lies flat and that helps. Stopping when she is sewing helps. She has trouble with stairs. She cannot depend on her left leg. She has a couple of steps to get into the house. She uses the right rail to ascend. She describes a sitting elliptical but states that she cannot figure out the arms. She has trouble walking her dog with leash in left hand and stick in right hand. If she does not have the dog, she uses both sticks. Pt is a poor historian. She changes her answers often when PT seeks clarification. She reports old right scapular and elbow fractures. She states she has exercises she is doing from old PT course but she does not know where the handouts are and she cannot demonstrate or describe the exercises. Prior Treatments and Tests PT for stiff person syndrome 5 years ago at this clinic. She worked on walking. Treatment Goals Patient/Caregiver Goals To be able to do the stairs better and to get up and down better. PT-OP-C Subjective Start: 02/01/20 07:29 Freq: Status: Active Protocol: Document 02/10/20 07:31 MB (Rec: 02/10/20 08:09 MB [id number]) OP-PT Subjective Patient Comments Patient Comments I had my infusions the last two days. Pt states that she gets her infusions at home. She would like to work on getting up and down off the floor in future treatments. PT-OP-D Balance Start: 02/01/20 07:29 Freq: Status: Active Protocol: Document 02/01/20 08:18 MB (Rec: 02/01/20 14:11 MB [id number]) OP-PT Balance Assessment Sitting Balance Static Sitting Balance Ability Good Dynamic Sitting Balance Ability Fair Sitting Balance Comments UE support for scooting up and down the mat Standing Balance Static Standing Balance Ability Fair Dynamic Standing Balance Ability Poor Standing Balance Comments UE support and CGA from PT for dynamic standing balance. Romberg EO 30 sec and EC 3 sec before LOB and pt takes a side step and PT provides light asst to prevent fall Balance Tests Romberg Romberg Romberg EO 30 sec and EC 3 sec before LOB Capps Fall Scale Copyright Permission PT-OP-G Mobility & Gait Start: 02/01/20 07:29 Freq: Status: Active Protocol: Document 02/01/20 08:18 MB (Rec: 02/01/20 14:11 MB [id number]) OP Gait Assessment Gait Gait Assistance Required: Standby Assistance Distance (Feet) 1,550 Assistive Devices Assistive Device Gait Belt Factors Limiting Gait Function Factors Limiting Gait Function Poor Balance Comments Gait Comments Pt carries and occ uses walking stick in right hand. Quick kellee and occ unequal stance time for 6MWT Stair Climbing Evaluation Evaluation Level of Assist On Stairs Standby Assistance Devices Stair Climbing Assistive Devices Left Railing Technique/Endurance Stair Climbing Direction Ascend and Descend Stair Climbing Technique Step Over Step Number of Steps Climbed 3 Stair Climbing Set # Repetitions (reps) 1 Comments Stair Climbing Comments Pt holds onto walking stick in right hand for ascend and rail in left hand for descend. She does not demonstrate like she says she performs steps at home despite PT cues that she said that she uses the rail on the right to ascend at home. Once again, pt with inconsistent reports of baseline PT-OP-J Posture/Palpation/Skin Start: 02/01/20 07:29 Freq: Status: Active Protocol: Document 02/01/20 08:18 MB (Rec: 02/01/20 14:11 MB [id number]) Posture Evaluation Comments Posture Comments Standing: wide BASHIR to assist with balance, Dowager's hump, pronounced thoracic kyphotic posture and increased lumbar lordosis, left iliac crest 1/2 higher than the right, right shoulder lower than the left PT-OP-K Range of Motion Start: 02/01/20 07:29 Freq: Status: Active Protocol: Document 02/01/20 08:18 MB (Rec: 02/01/20 14:11 MB [id number]) Shoulder Goniometric Range of Motion Shoulder ROM Limitations Comments In supine, B shoulder flexion overhead with right shoulder 10 deg less than the left Ankle and Foot Goniometric Range of Motion Ankle and Foot ROM Limitations Comments Pt presents with B decreased DF and great toe extension in supine PT-OP-M Strength Start: 02/01/20 07:29 Freq: Status: Active Protocol: Document 02/01/20 08:18 MB (Rec: 02/01/20 14:11 MB [id number]) Hip Strength Hip Manual Muscle Testing Left Flexion (L2) 3+ Fair+ Abduction 4 Good Comments Pt supine Right Flexion (L2) 3+ Fair+ Abduction 4 Good Comments Pt supine Knee Strength Knee Manual Muscle Testing Left Flexion (S2) 4 Good Extension (L3) 4 Good Right Flexion (S2) 4 Good Extension (L3) 4 Good Ankle/Foot Strength Ankle and Foot Manual Muscle Testing Left Dorsiflexion (L4) 4 Good Comments In available range Right Dorsiflexion (L4) 4 Good Comments In available range Toe Strength Toe Manual Muscle Testing Left Great Toe Extension 3+ Fair+ Right Great Toe Extension 3+ Fair+ PT-OP-Q Treatments Start: 02/01/20 07:29 Freq: Status: Active Protocol: Document 02/10/20 07:31 MB (Rec: 02/10/20 08:09 MB [id number]) Cardio Equipment Recumbent Elliptical (Zones) Duration (Minutes) 10 Resistance 9 Seat Position 11 Therapeutic Exercises Supine Exercises Hamstring stretch Side bilateral Comments Hands behind knees, cues to flex hip first, 2 reps both x45 sec Ramon stretch Side bilateral Reps/Minutes 45 sec Comments core engagement, cued set up at EOB and knee flex quad stretch Sitting Exercises Sit to stands Reps/Minutes 5 reps x1 Comments Hands on chair and pt cannot perform without hands today Standing Exercises band walk Side bilateral Resistance Level 1 band Comments Right and left x2, forwards x4 Gastroc stretches Side bilateral Comments UE support, 45 sec hold Other Exercises Stair training for exercise today Other Exercise Name Two feet per step descend, reciprocal ascend Comments 2 reps up and down standard and short steps, 1 rail, stick , descend L first PT-OP-T Assessment and Plan Start: 02/01/20 07:29 Freq: Status: Active Protocol: Document 02/10/20 07:31 MB (Rec: 02/10/20 08:09 MB [id number]) Physical Therapy Assessment Rehab Potential Rehabilitation Potential Fair Evaluation Complexity Number of Personal Factors/Comorbidities 3 or More Number of Body Systems Impaired 3 Clinical Presentation at Evaluation Evolving Impairments Impairments Activity Tolerance,Balance, Coordination,Functional Activities,Functional Mobility ,Gait,Pain,Posture,ROM,Soft Tissue Mobility,Strength Other Impairments Pt presents with cognitive impairment and trouble communicating consistently with PMH and mobility questioning. Her medical presentation is evolving in setting of autoimmune disease and history of brain surgery, TBI and seizures. She has musculoskeletal and neuromuscular contributors to presentation. She has vague reports of pain and cannot state what makes pain better or worse and she does not localize pain well. Similarly, she states she is doing exercises from previous PT courses at home but she does not know if she has handouts and cannot demonstrate or verbalize exercises. Other Concerns Fall Risk Yes Goals 5 Gas Turbine Mechanic Goal (LTG) Pt will perform at least 10 reps sit to stand without UE support in 30 sec to improve reports of trouble getting up and down by 03/21/2020. LTG Duration 6 weeks 4 [facility] Goal (LTG) Pt will ascend and descend 3 steps x3 with 1 rail and no other AD to improve confidence with stair mobility by 2019. LTG Duration 6 weeks 3 [facility] Goal (LTG) Pt will gait train 1600 feet without AD in 6 minutes to improve community ambulation and decrease fall risk by . LTG Duration 6 weeks 2 Gas Turbine Mechanic Goal (LTG) Pt will perform progressive HEP with I including flexibility, strengthening, gait and balance exercises to improve safety and balance by 03/21/2020. LTG Duration 6 weeks 1 Gas Turbine Mechanic Goal (LTG) Pt will perform WNLs on a standardized balance test to decrease fall risk by 2019. LTG Duration 6 weeks Assessment Summary Assessment Reviewed all exercises today as pt has not been able to perform at home. She requires extensive cues and practice for all exercises. Ongoing memory trouble is a barrier to carryover with PT exercises. Will endeavor not to provide too many for ongoing HEP--will add a balance exercise and wall slides as her knees tolerate. Physical Therapy Plan Frequency and Duration Frequency of Treatment 2x/Week Duration of Treatment 6 weeks Plan of Care Start Date 02/01/20 Plan of Care End Date 03/21/20 Therapeutic Interventions Therapeutic Interventions Balance Training,Canalithic Repositioning,Coordination Training,Gait Training,Home Exercise Program,Manual Therapy,Neuromuscular Re- education,Patient/Caregiver Education,Self-Care/Home Management,Soft Tissue Mobilization,Therapeutic Activities,Therapeutic Exercises Modalities Cold Pack/Ice Massage,Hot Packs Next Visit Focus/Plan Next Note Type Treatment Note Next Visit Plan In the next two treatments: practice ascending and descending steps, getting on and off the floor and wall slides may be helpful. Further balance exercises. Consider an ankle strengthening exercise for home (1 band around feet and eversion and inversion).
--- NOTE | 2020-02-15 09:20 | PT.OTN ---
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) Physical Therapy Treatment Note PT-OP-A Visit Information Start: 02/01/20 07:29 Freq: Status: Active Protocol: Document 02/15/20 08:22 SP (Rec: 02/15/20 09:43 SP [id number]) Out-Patient Physical Therapy Visit Information Visit Information Visit Type Treatment Note Visit Start Time 08:22 Visit Stop Time 09:20 Total Visit Minutes 58 Visit Number 5 Number of TWIST MAKER Visits 1 PT-OP-B Current Condition Start: 02/01/20 07:29 Freq: Status: Active Protocol: Document 02/01/20 08:18 MB (Rec: 02/01/20 08:43 MB [id number]) Current Condition History of Current Condition Onset Date Greater than 20 years ago Current Complaints Difficulty with left leg and lowering self down and getting back up History of Current Condition 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 She has a new neurologist, Dr. Wallace. Pt has history of seizures since her 30s. Her last seizure was longer than a year ago. 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 She saw a neuro opthamalogsit for aura migraine that was changing colors. She cannot state when her last headache was. She reports fairly often. 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 Medications include Keppra for seizures, valium for pain ( she takes 2.5 pills a day), synthroid and baclofen. Pt uses walking stick on the right to help with her balance . Pt's last fall was over a year ago. She cannot describe her dizziness. She had two hosptial ED visits to have aaron on head after hitting head with falling. She denies syncopal episodes. Pt reports LOB is a problem when her joints stiffen up. She has not had orthopedic surgery. Pt cannot rate pain. She reports right groin pain, ear pain. There's no way to explain where it it going to show up and why. She would like to work on lowering herself down and getting back up. Pt has an inversion table and she lies flat and that helps. Stopping when she is sewing helps. She has trouble with stairs. She cannot depend on her left leg. She has a couple of steps to get into the house. She uses the right rail to ascend. She describes a sitting elliptical but states that she cannot figure out the arms. She has trouble walking her dog with leash in left hand and stick in right hand. If she does not have the dog, she uses both sticks. Pt is a poor historian. She changes her answers often when PT seeks clarification. She reports old right scapular and elbow fractures. She states she has exercises she is doing from old PT course but she does not know where the handouts are and she cannot demonstrate or describe the exercises. Prior Treatments and Tests PT for stiff person syndrome 5 years ago at this clinic. She worked on walking. Treatment Goals Patient/Caregiver Goals To be able to do the stairs better and to get up and down better. PT-OP-C Subjective Start: 02/01/20 07:29 Freq: Status: Active Protocol: Document 02/15/20 08:22 SP (Rec: 02/15/20 09:43 SP [id number]) OP-PT Subjective Patient Comments Patient Comments Pt reported had her 1.5 y/o grandson this weekend and did get to her exercises but was busy with him and tired him. PT-OP-D Balance Start: 02/01/20 07:29 Freq: Status: Active Protocol: Document 02/01/20 08:18 MB (Rec: 02/01/20 14:11 MB [id number]) OP-PT Balance Assessment Sitting Balance Static Sitting Balance Ability Good Dynamic Sitting Balance Ability Fair Sitting Balance Comments UE support for scooting up and down the mat Standing Balance Static Standing Balance Ability Fair Dynamic Standing Balance Ability Poor Standing Balance Comments UE support and CGA from PT for dynamic standing balance. Romberg EO 30 sec and EC 3 sec before LOB and pt takes a side step and PT provides light asst to prevent fall Balance Tests Romberg Romberg Romberg EO 30 sec and EC 3 sec before LOB Capps Fall Scale Copyright Permission PT-OP-G Mobility & Gait Start: 02/01/20 07:29 Freq: Status: Active Protocol: Document 02/01/20 08:18 MB (Rec: 02/01/20 14:11 MB [id number]) OP Gait Assessment Gait Gait Assistance Required: Standby Assistance Distance (Feet) 1,550 Assistive Devices Assistive Device Gait Belt Factors Limiting Gait Function Factors Limiting Gait Function Poor Balance Comments Gait Comments Pt carries and occ uses walking stick in right hand. Quick kellee and occ unequal stance time for 6MWT Stair Climbing Evaluation Evaluation Level of Assist On Stairs Standby Assistance Devices Stair Climbing Assistive Devices Left Railing Technique/Endurance Stair Climbing Direction Ascend and Descend Stair Climbing Technique Step Over Step Number of Steps Climbed 3 Stair Climbing Set # Repetitions (reps) 1 Comments Stair Climbing Comments Pt holds onto walking stick in right hand for ascend and rail in left hand for descend. She does not demonstrate like she says she performs steps at home despite PT cues that she said that she uses the rail on the right to ascend at home. Once again, pt with inconsistent reports of baseline PT-OP-J Posture/Palpation/Skin Start: 02/01/20 07:29 Freq: Status: Active Protocol: Document 02/01/20 08:18 MB (Rec: 02/01/20 14:11 MB [id number]) Posture Evaluation Comments Posture Comments Standing: wide BASHIR to assist with balance, Dowager's hump, pronounced thoracic kyphotic posture and increased lumbar lordosis, left iliac crest 1/2 higher than the right, right shoulder lower than the left PT-OP-K Range of Motion Start: 02/01/20 07:29 Freq: Status: Active Protocol: Document 02/01/20 08:18 MB (Rec: 02/01/20 14:11 MB [id number]) Shoulder Goniometric Range of Motion Shoulder ROM Limitations Comments In supine, B shoulder flexion overhead with right shoulder 10 deg less than the left Ankle and Foot Goniometric Range of Motion Ankle and Foot ROM Limitations Comments Pt presents with B decreased DF and great toe extension in supine PT-OP-M Strength Start: 02/01/20 07:29 Freq: Status: Active Protocol: Document 02/01/20 08:18 MB (Rec: 02/01/20 14:11 MB [id number]) Hip Strength Hip Manual Muscle Testing Left Flexion (L2) 3+ Fair+ Abduction 4 Good Comments Pt supine Right Flexion (L2) 3+ Fair+ Abduction 4 Good Comments Pt supine Knee Strength Knee Manual Muscle Testing Left Flexion (S2) 4 Good Extension (L3) 4 Good Right Flexion (S2) 4 Good Extension (L3) 4 Good Ankle/Foot Strength Ankle and Foot Manual Muscle Testing Left Dorsiflexion (L4) 4 Good Comments In available range Right Dorsiflexion (L4) 4 Good Comments In available range Toe Strength Toe Manual Muscle Testing Left Great Toe Extension 3+ Fair+ Right Great Toe Extension 3+ Fair+ PT-OP-Q Treatments Start: 02/01/20 07:29 Freq: Status: Active Protocol: Document 02/15/20 08:22 SP (Rec: 02/15/20 09:43 SP [id number]) Cardio Equipment Recumbent Elliptical (Pickie) Duration (Minutes) 5 Resistance 5 Seat Position 10 Therapeutic Exercises Supine Exercises SLR Supine Exercise Name hip little ER Side left Reps/Minutes 5reps x2 Comments cued knee extension quad fac to assist strengthen steady on stairs Sitting Exercises LAQ Sitting Exercise Name focus on quad strengthening for stairrs Side left Reps/Minutes 5 sec hold x5, x2 sets (30-60 se rest betweens set) Comments cued scoot full back on seat/ table (bed home) Sit to stands Sitting Exercise Name Hands on chair and pt cannot perform without hands today Equipment Used uses hands, raised seat- better Reps/Minutes 5 reps x1 Comments crepitis in L knee can be bothersome Standing Exercises band walk Standing Exercise Name f/b/side stepping Side bilateral Resistance Level 1 band HEP (YTB in PT) Reps/Minutes 10 ft x2 Comments cued core/ trunk upright alignment stability Therapeutic Activity Therapeutic Activity on/ off floor Comments chair use for support, assessed without and unable at this time Gait Training Gait Activity stair mgt Description reciprocal ascend and descend, unsteady LLE during eccentric knee flexion Device Used R HR, walking stick in LUE Level of Assistance SBA Surface 4 steps Distance/Duration x4 sets Treatment Focus motor planning proper placement of stick for safety, L knee stabilization Comments 2 reps up and down standard and short steps 02/14: B rails installed soon at home enterance of deck PT-OP-T Assessment and Plan Start: 02/01/20 07:29 Freq: Status: Active Protocol: Document 02/15/20 08:22 SP (Rec: 02/15/20 09:43 SP [id number]) Physical Therapy Assessment Goals 5 Sap Bi Developer Goal (LTG) Pt will perform at least 10 reps sit to stand without UE support in 30 sec to improve reports of trouble getting up and down by 03/21/2020. LTG Duration 6 weeks 4 Long-Term Goal (LTG) Pt will ascend and descend 3 steps x3 with 1 rail and no other AD to improve confidence with stair mobility by 2019. LTG Duration 6 weeks 3 Sap Bi Developer Goal (LTG) Pt will gait train 1600 feet without AD in 6 minutes to improve community ambulation and decrease fall risk by . LTG Duration 6 weeks 2 Sap Bi Developer Goal (LTG) Pt will perform progressive HEP with I including flexibility, strengthening, gait and balance exercises to improve safety and balance by 03/21/2020. LTG Duration 6 weeks 1 Sap Bi Developer Goal (LTG) Pt will perform WNLs on a standardized balance test to decrease fall risk by 2019. LTG Duration 6 weeks Assessment Summary Assessment Tx focused on getting on/ off floor for safety doing gardening and if fell how to get up, unable without chair support at this time, will continue strengthen to improve . Stair mgt R HR as has with 1 walk stick- cuing for stick placement and step to gait descending for safety while LLE weakness eccentric knee flexion- she focuses on step over step. Discussed recommended of dog leash fasten on trunk for safety stair mgt and recovery balance outdoor walks by self with hand out provided, see chart. Reviewed band walk with good demonstration of balance and strengthening, added LAQ and SLR to improve quad facilitation for stabilization on stairs and on/off floor with noted weakness shake and tolerated 5 reps with rest between sets for tiring recovery. No adverse affects and safe to self perform to improve at home, wants HEP to help her strengthen. Recommended to stretch at home later, didn't get to review today. Review wall slides next tx, didnt' address past 2 txs . Physical Therapy Plan Frequency and Duration Frequency of Treatment 2x/Week Duration of Treatment 6 weeks Plan of Care Start Date 02/01/20 Plan of Care End Date 03/21/20 Therapeutic Interventions Therapeutic Interventions Balance Training,Canalithic Repositioning,Coordination Training,Gait Training,Home Exercise Program,Manual Therapy,Neuromuscular Re- education,Patient/Caregiver Education,Self-Care/Home Management,Soft Tissue Mobilization,Therapeutic Activities,Therapeutic Exercises Modalities Cold Pack/Ice Massage,Hot Packs Next Visit Focus/Plan Next Note Type Treatment Note Next Visit Plan Continue practice ascending and descending steps, getting on and off the floor and wall slides and HEP review may be helpful. In future txs: Further progress balance exercises. Consider an ankle strengthening exercise for home (1 band around feet and eversion and inversion).
--- NOTE | 2020-02-17 09:00 | PT.OTN ---
Current Diagnoses Stiff-man syndrome (02/17/20) Ataxic gait (02/17/20) Physical Therapy Treatment Note PT-OP-A Visit Information Start: 02/01/20 07:29 Freq: Status: Active Protocol: Document 02/17/20 08:15 MB (Rec: 02/17/20 08:54 MB [id number]) Out-Patient Physical Therapy Visit Information Visit Information Visit Type Treatment Note Visit Start Time 08:15 Visit Stop Time 08:53 Total Visit Minutes 38 Visit Number 6 Number of KINDERGARTEN TEACHER Visits 0 PT-OP-B Current Condition Start: 02/01/20 07:29 Freq: Status: Active Protocol: Document 02/01/20 08:18 MB (Rec: 02/01/20 08:43 MB [id number]) Current Condition History of Current Condition Onset Date Greater than 20 years ago Current Complaints Difficulty with left leg and lowering self down and getting back up History of Current Condition 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 She has a new neurologist, Dr. Wallace. Pt has history of seizures since her 30s. Her last seizure was longer than a year ago. 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 She saw a neuro opthamalogsit for aura migraine that was changing colors. She cannot state when her last headache was. She reports fairly often. 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 Medications include Keppra for seizures, valium for pain ( she takes 2.5 pills a day), synthroid and baclofen. Pt uses walking stick on the right to help with her balance . Pt's last fall was over a year ago. She cannot describe her dizziness. She had two hosptial ED visits to have aaron on head after hitting head with falling. She denies syncopal episodes. Pt reports LOB is a problem when her joints stiffen up. She has not had orthopedic surgery. Pt cannot rate pain. She reports right groin pain, ear pain. There's no way to explain where it it going to show up and why. She would like to work on lowering herself down and getting back up. Pt has an inversion table and she lies flat and that helps. Stopping when she is sewing helps. She has trouble with stairs. She cannot depend on her left leg. She has a couple of steps to get into the house. She uses the right rail to ascend. She describes a sitting elliptical but states that she cannot figure out the arms. She has trouble walking her dog with leash in left hand and stick in right hand. If she does not have the dog, she uses both sticks. Pt is a poor historian. She changes her answers often when PT seeks clarification. She reports old right scapular and elbow fractures. She states she has exercises she is doing from old PT course but she does not know where the handouts are and she cannot demonstrate or describe the exercises. Prior Treatments and Tests PT for stiff person syndrome 5 years ago at this clinic. She worked on walking. Treatment Goals Patient/Caregiver Goals To be able to do the stairs better and to get up and down better. PT-OP-C Subjective Start: 02/01/20 07:29 Freq: Status: Active Protocol: Document 02/17/20 08:15 MB (Rec: 02/17/20 08:54 MB [id number]) OP-PT Subjective Patient Comments Patient Comments I had a busy day yesterday and I got a little sore taking boxes down off shelves. PT-OP-D Balance Start: 02/01/20 07:29 Freq: Status: Active Protocol: Document 02/01/20 08:18 MB (Rec: 02/01/20 14:11 MB [id number]) OP-PT Balance Assessment Sitting Balance Static Sitting Balance Ability Good Dynamic Sitting Balance Ability Fair Sitting Balance Comments UE support for scooting up and down the mat Standing Balance Static Standing Balance Ability Fair Dynamic Standing Balance Ability Poor Standing Balance Comments UE support and CGA from PT for dynamic standing balance. Romberg EO 30 sec and EC 3 sec before LOB and pt takes a side step and PT provides light asst to prevent fall Balance Tests Romberg Romberg Romberg EO 30 sec and EC 3 sec before LOB Capps Fall Scale Copyright Permission PT-OP-G Mobility & Gait Start: 02/01/20 07:29 Freq: Status: Active Protocol: Document 02/01/20 08:18 MB (Rec: 02/01/20 14:11 MB [id number]) OP Gait Assessment Gait Gait Assistance Required: Standby Assistance Distance (Feet) 1,550 Assistive Devices Assistive Device Gait Belt Factors Limiting Gait Function Factors Limiting Gait Function Poor Balance Comments Gait Comments Pt carries and occ uses walking stick in right hand. Quick kellee and occ unequal stance time for 6MWT Stair Climbing Evaluation Evaluation Level of Assist On Stairs Standby Assistance Devices Stair Climbing Assistive Devices Left Railing Technique/Endurance Stair Climbing Direction Ascend and Descend Stair Climbing Technique Step Over Step Number of Steps Climbed 3 Stair Climbing Set # Repetitions (reps) 1 Comments Stair Climbing Comments Pt holds onto walking stick in right hand for ascend and rail in left hand for descend. She does not demonstrate like she says she performs steps at home despite PT cues that she said that she uses the rail on the right to ascend at home. Once again, pt with inconsistent reports of baseline PT-OP-J Posture/Palpation/Skin Start: 02/01/20 07:29 Freq: Status: Active Protocol: Document 02/01/20 08:18 MB (Rec: 02/01/20 14:11 MB [id number]) Posture Evaluation Comments Posture Comments Standing: wide BASHIR to assist with balance, Dowager's hump, pronounced thoracic kyphotic posture and increased lumbar lordosis, left iliac crest 1/2 higher than the right, right shoulder lower than the left PT-OP-K Range of Motion Start: 02/01/20 07:29 Freq: Status: Active Protocol: Document 02/01/20 08:18 MB (Rec: 02/01/20 14:11 MB [id number]) Shoulder Goniometric Range of Motion Shoulder ROM Limitations Comments In supine, B shoulder flexion overhead with right shoulder 10 deg less than the left Ankle and Foot Goniometric Range of Motion Ankle and Foot ROM Limitations Comments Pt presents with B decreased DF and great toe extension in supine PT-OP-M Strength Start: 02/01/20 07:29 Freq: Status: Active Protocol: Document 02/01/20 08:18 MB (Rec: 02/01/20 14:11 MB [id number]) Hip Strength Hip Manual Muscle Testing Left Flexion (L2) 3+ Fair+ Abduction 4 Good Comments Pt supine Right Flexion (L2) 3+ Fair+ Abduction 4 Good Comments Pt supine Knee Strength Knee Manual Muscle Testing Left Flexion (S2) 4 Good Extension (L3) 4 Good Right Flexion (S2) 4 Good Extension (L3) 4 Good Ankle/Foot Strength Ankle and Foot Manual Muscle Testing Left Dorsiflexion (L4) 4 Good Comments In available range Right Dorsiflexion (L4) 4 Good Comments In available range Toe Strength Toe Manual Muscle Testing Left Great Toe Extension 3+ Fair+ Right Great Toe Extension 3+ Fair+ PT-OP-Q Treatments Start: 02/01/20 07:29 Freq: Status: Active Protocol: Document 02/17/20 08:15 MB (Rec: 02/17/20 08:54 MB [id number]) Cardio Equipment Recumbent Elliptical (Biodex) Duration (Minutes) 10 Resistance 9 Therapeutic Activity Therapeutic Activity on/ off floor Comments Yoga mat folded for her knees, left hand on stair rail and right foot in front for getting back up. She descends with both knees together. Cues and superv From chair to wedge: lower with right hand on chair, both knees to wedge, reach back for chair and use right foot to get back up on the chair--3 reps and cues and CGA. Pt does occ use both hands. Ed to try to go down on right knee, troublesome. Pt is able to push with left hand on wedge with right foot underneath her to get up (CGA). 2 reps to move to knees on wedge from sitting on chair Chair to rolled yoga mat: extensive effort and trials to get right foot behind and push up to stand--cannot do from quadriped and pt uses left hand on chair x2 reps Gait Training Gait Activity stair mgt Comments Over 25 reps, 3 standard steps with and without rail, reciprocal gait and pt reports left leg shaking with this PT-OP-T Assessment and Plan Start: 02/01/20 07:29 Freq: Status: Active Protocol: Document 02/17/20 08:15 MB (Rec: 02/17/20 08:54 MB [id number]) Physical Therapy Assessment Goals 5 Obgyn Hospitalist Physician Goal (LTG) Pt will perform at least 10 reps sit to stand without UE support in 30 sec to improve reports of trouble getting up and down by 03/21/2020. 02/17/2020: Deferred d/t pt preference to practice getting on and off the floor this date LTG Duration 6 weeks 4 Group Home Goal (LTG) Pt will ascend and descend 3 steps x3 with 1 rail and no other AD to improve confidence with stair mobility by 2019. 02/17/2020: Goal met LTG Duration 6 weeks 3 Obgyn Hospitalist Physician Goal (LTG) Pt will gait train 1600 feet without AD in 6 minutes to improve community ambulation and decrease fall risk by . 02/17/2020: Deferred d/t pt preference to practice getting on and off the floor this date LTG Duration 6 weeks 2 Obgyn Hospitalist Physician Goal (LTG) Pt will perform progressive HEP with I including flexibility, strengthening, gait and balance exercises to improve safety and balance by 03/21/2020. 02/17/2020: Goat met LTG Duration 6 weeks 1 Group Home Goal (LTG) Pt will perform WNLs on a standardized balance test to decrease fall risk by 2019. 02/17/2020: Deferred d/t pt preference to practice getting on and off the floor this date LTG Duration 6 weeks Assessment Summary Assessment Pt does progress with stairs with PT treatments and she con 't to perseverate that she has trouble with stairs at home and unsure if she recalls that PT is working on this and getting on and off the floor. She states 2-3 times today that that is the main reason why she is here. Left leg weakness could be related to degenerative changes with loud crepitus. Ed pt to use ice on her left knee when she goes home d/t she refuses here. Pt would like to d/c, see comments below. Physical Therapy Plan Frequency and Duration Frequency of Treatment 2x/Week Duration of Treatment 6 weeks Plan of Care Start Date 02/01/20 Plan of Care End Date 03/21/20 Therapeutic Interventions Therapeutic Interventions Balance Training,Canalithic Repositioning,Coordination Training,Gait Training,Home Exercise Program,Manual Therapy,Neuromuscular Re- education,Patient/Caregiver Education,Self-Care/Home Management,Soft Tissue Mobilization,Therapeutic Activities,Therapeutic Exercises Modalities Cold Pack/Ice Massage,Hot Packs Discharge Physical Therapy Discharge Reasons Patient Request Discharge Comments Pt would like to d/c as she has infusions continuing and she is going to visit her cousin in [place].
== END 2020-03-07 09:45 ==
LOC: PHYS 08:15
PROVIDERS: PCP Family Medicine; Referring Provider Psychiatry & Neurology Neurology; Visit Provider Psychiatry & Neurology Neurology
DX: G25.82 Stiff-man syndrome (principal); R26.0 Ataxic gait
CPT/HCPCS: 97110; 97116; 97162; 97530

== ENCOUNTER → 2020-04-18 08:27 | Outpatient (CLI) | payer OTHER, SELFPAY ==
[2020-04-18 09:53] LABS: Add Manual Diff / Slide Review NO; Basophils Absolute Auto 0 /uL (0-100); Basophils Percent Auto 1.1 % (0-2); Eosinophils Absolute Auto 100 /uL (0-450); Eosinophils Percent Auto 1.7 % (2-4); Hematocrit 39.1 % (36-46); Hemoglobin 13.5 g/dL (12.0-16.0); Lymphocytes Absolute Auto 1400 /uL (1100-4500); Lymphocytes Percent Auto 37.4 % (25-40); Mean Corpuscular HGB Conc 34.4 % (30-36); Mean Corpuscular Hemoglobin 31.7 PG (26-34); Monocytes Absolute Auto 300 /uL (0-900); Monocytes Percent Auto 7.3 % (3-14); Neutrophils Absolute Auto 2000 /uL (1500-7000); Neutrophils Percent Auto 52.5 % (50-75); Platelet Count 193 X10^3/uL (150-400); Red Blood Cell Count 4.25 X10^6/uL (4.0-5.2); Red Cell Distribution Width 12.5 % (11.6-14.8); White Blood Cell Count 3.7 X10^3/uL (4.5-11.0)
[2020-04-18 10:13] LABS: Alanine Aminotransferase 26 IU/L (<35); Albumin 4.4 g/dL (3.5-5.0); Albumin Globulin Ratio 0.9 (1.0-2.8); Alkaline Phosphatase 58 U/L (38-126); Aspartate Aminotransferase 42 IU/L (14-36); Bilirubin Total 0.5 mg/dL (0.2-1.3); Blood Urea Nitrogen 14 mg/dL (7-17); Calcium 9.9 mg/dL (8.4-10.2); Carbon Dioxide 35 mmol/L (22-32); Chloride 101 mmol/L (98-107); Estimated Glomerular Filt Rate > 60.0 mL/min (>60); Globulin 5.1 g/dL (1.7-4.1); Glucose 83 mg/dL (70-100); HEMOLYSIS < 15 (0-50); Potassium 3.8 mmol/L (3.4-5.1); Sodium 137 mmol/L (137-145); Total Protein 9.5 g/dL (6.3-8.2)
== END ==
PROVIDERS: PCP Family Medicine; Referring Provider Family Medicine; Visit Provider Family Medicine
DX: G25.82 Stiff-man syndrome (principal)
CPT/HCPCS: 36415; 80053; 85025

== ENCOUNTER → 2020-06-16 07:33 | Outpatient (CLI) | payer OTHER, SELFPAY ==
[2020-06-16 07:54] LABS: Add Manual Diff / Slide Review NO; Basophils Absolute Auto 0 /uL (0-100); Basophils Percent Auto 0.8 % (0-2); Eosinophils Absolute Auto 0 /uL (0-450); Eosinophils Percent Auto 1.2 % (2-4); Hematocrit 37.8 % (36-46); Hemoglobin 13.1 g/dL (12.0-16.0); Lymphocytes Absolute Auto 1400 /uL (1100-4500); Lymphocytes Percent Auto 40.3 % (25-40); Mean Corpuscular HGB Conc 34.6 % (30-36); Mean Corpuscular Hemoglobin 31.8 PG (26-34); Mean Corpuscular Volume 92.1 fL (80-100); Monocytes Absolute Auto 300 /uL (0-900); Monocytes Percent Auto 7.9 % (3-14); Neutrophils Absolute Auto 1700 /uL (1500-7000); Neutrophils Percent Auto 49.8 % (50-75); Platelet Count 175 X10^3/uL (150-400); Red Blood Cell Count 4.11 X10^6/uL (4.0-5.2); Red Cell Distribution Width 13.2 % (11.6-14.8); White Blood Cell Count 3.4 X10^3/uL (4.5-11.0)
[2020-06-16 08:30] LABS: BUN Creatinine Ratio 23.3 (6-22); Blood Urea Nitrogen 14 mg/dL (7-17); Calcium 9.8 mg/dL (8.4-10.2); Carbon Dioxide 34 mmol/L (22-32); Chloride 102 mmol/L (98-107); Cholesterol 196 mg/dL (140-199); Estimated Glomerular Filt Rate > 60.0 mL/min (>60); Glucose 102 mg/dL (70-100); HDL Cholesterol 53 mg/dL (40-60); HEMOLYSIS < 15 (0-50); LDL Cholesterol Calculated 126 mg/dL (<100); Potassium 4.3 mmol/L (3.4-5.1); Sodium 138 mmol/L (137-145); Triglycerides 87 mg/dL (35-150)
[2020-06-16 09:08] LABS: Free T3, Triiodothyronine Free 2.64 pg/mL (2.77-5.27); Free T4, Direct Thyroxine 1.02 ng/dL (0.78-2.19)
[2020-06-16 09:21] LABS: Thyroid Stimulating Hormone 8.87 uIU/mL (0.47-4.68)
== END ==
PROVIDERS: PCP Family Medicine; Referring Provider Family Medicine; Visit Provider Family Medicine
DX: E03.9 Hypothyroidism, unspecified (principal); E56.9 Vitamin deficiency, unspecified; G25.82 Stiff-man syndrome; G40.909 Epilepsy, unspecified, not intractable, without status epilepticus; G43.909 Migraine, unspecified, not intractable, without status migrainosus; G89.29 Other chronic pain; M54.9 Dorsalgia, unspecified
CPT/HCPCS: 36415; 80048; 80061; 84439; 84443; 84481; 85025

== ENCOUNTER → 2020-09-20 08:47 | Outpatient (CLI) | payer OTHER, SELFPAY ==
[2020-09-20 10:01] LABS: Free T3, Triiodothyronine Free 5.05 pg/mL (2.77-5.27); Free T4, Direct Thyroxine 1.66 ng/dL (0.78-2.19)
[2020-09-20 10:16] LABS: Thyroid Stimulating Hormone < 0.015 uIU/mL (0.47-4.68)
== END ==
PROVIDERS: PCP Family Medicine; Referring Provider Family Medicine; Visit Provider Family Medicine
DX: E03.9 Hypothyroidism, unspecified (principal)
CPT/HCPCS: 36415; 84439; 84443; 84481

== ENCOUNTER → 2020-09-26 17:25 | Outpatient (CLI) | payer OTHER, SELFPAY ==
--- NOTE | 2020-09-26 | DI.MG.S_ITS ---
BILATERAL DIGITAL SCREENING MAMMOGRAM 3D/2D WITH CAD: 09/26/2020 CLINICAL: Routine screening. Comparison is made to exams dated: 08/07/2018 mammogram, 07/26/2017 mammogram, and 06/24/2015 mammogram - [facility]. The tissue of both breasts is heterogeneously dense. This may lower the sensitivity of mammography. Current study was also evaluated with a Computer Aided Detection (CAD) system. There are benign diffuse calcifications in both breasts. No significant masses, calcifications, or other findings are seen in either breast. There has been no significant interval change. IMPRESSION: BENIGN There is no mammographic evidence of malignancy. A 1 year screening mammogram is recommended. This exam was interpreted at Station ID: [id number]. NOTE: For mammograms, a report in lay terms will be sent to the patient. Approximately 15% of breast malignancies will not be visualized mammographically. In the management of a palpable breast mass, a negative mammogram must not discourage biopsy of a clinically suspicious lesion. Electronically Signed By: Faraz gerardo/evan:09/27/2020 07:58:32 letter sent: Normal Exam ACR BI-RADS Category 2: Benign Finding(s) [id number]
== END ==
PROVIDERS: PCP Family Medicine; Referring Provider Family Medicine; Visit Provider Family Medicine
DX: Z12.31 Encounter for screening mammogram for malignant neoplasm of breast (principal)
CPT/HCPCS: 77063; 77067

== ENCOUNTER → 2020-10-05 09:28 | Outpatient (CLI) | payer OTHER, SELFPAY ==
[2020-10-05 10:40] LABS: Add Manual Diff / Slide Review NO; Basophils Absolute Auto 0 /uL (0-100); Basophils Percent Auto 0.8 % (0-2); Eosinophils Absolute Auto 100 /uL (0-450); Eosinophils Percent Auto 1.3 % (2-4); Hematocrit 40.6 % (36-46); Hemoglobin 13.7 g/dL (12.0-16.0); Lymphocytes Absolute Auto 1700 /uL (1100-4500); Lymphocytes Percent Auto 39.5 % (25-40); Mean Corpuscular HGB Conc 33.6 % (30-36); Mean Corpuscular Hemoglobin 30.2 PG (26-34); Mean Corpuscular Volume 89.8 fL (80-100); Monocytes Absolute Auto 400 /uL (0-900); Monocytes Percent Auto 8.6 % (3-14); Neutrophils Absolute Auto 2100 /uL (1500-7000); Neutrophils Percent Auto 49.8 % (50-75); Platelet Count 201 X10^3/uL (150-400); Red Blood Cell Count 4.53 X10^6/uL (4.0-5.2); Red Cell Distribution Width 12.3 % (11.6-14.8); White Blood Cell Count 4.2 X10^3/uL (4.5-11.0)
[2020-10-05 10:48] LABS: Alanine Aminotransferase 27 IU/L (<35); Albumin 4.6 g/dL (3.5-5.0); Albumin Globulin Ratio 1.3 (1.0-2.8); Alkaline Phosphatase 53 U/L (38-126); Aspartate Aminotransferase 43 IU/L (14-36); Bilirubin Total 0.5 mg/dL (0.2-1.3); Blood Urea Nitrogen 14 mg/dL (7-17); Calcium 10.3 mg/dL (8.4-10.2); Carbon Dioxide 30 mmol/L (22-32); Chloride 102 mmol/L (98-107); Estimated Glomerular Filt Rate > 60.0 mL/min (>60); Globulin 3.6 g/dL (1.7-4.1); Glucose 92 mg/dL (70-100); HEMOLYSIS < 15 (0-50); Potassium 4.7 mmol/L (3.4-5.1); Sodium 139 mmol/L (137-145); Total Protein 8.2 g/dL (6.3-8.2)
== END ==
PROVIDERS: PCP Family Medicine; Referring Provider Psychiatry & Neurology Neurology; Visit Provider Psychiatry & Neurology Neurology
DX: R76.0 Raised antibody titer (principal); G25.82 Stiff-man syndrome
CPT/HCPCS: 36415; 80053; 85025

== ENCOUNTER → 2020-11-08 08:50 | Outpatient (CLI) | payer OTHER, SELFPAY ==
[2020-11-08 09:58] LABS: Add Manual Diff / Slide Review NO; Basophils Absolute Auto 0 /uL (0-100); Basophils Percent Auto 0.8 % (0-2); Eosinophils Absolute Auto 0 /uL (0-450); Eosinophils Percent Auto 1.3 % (2-4); Hematocrit 41.5 % (36-46); Hemoglobin 14.2 g/dL (12.0-16.0); Lymphocytes Absolute Auto 1600 /uL (1100-4500); Lymphocytes Percent Auto 42.9 % (25-40); Mean Corpuscular HGB Conc 34.2 % (30-36); Mean Corpuscular Hemoglobin 30.6 PG (26-34); Mean Corpuscular Volume 89.4 fL (80-100); Monocytes Absolute Auto 300 /uL (0-900); Neutrophils Absolute Auto 1700 /uL (1500-7000); Platelet Count 180 X10^3/uL (150-400); Red Blood Cell Count 4.65 X10^6/uL (4.0-5.2); White Blood Cell Count 3.7 X10^3/uL (4.5-11.0)
[2020-11-08 11:43] LABS: Alanine Aminotransferase 29 IU/L (<35); Albumin 4.5 g/dL (3.5-5.0); Albumin Globulin Ratio 1.2 (1.0-2.8); Alkaline Phosphatase 52 U/L (38-126); Aspartate Aminotransferase 44 IU/L (14-36); BUN Creatinine Ratio 26.4 (6-22); Bilirubin Total 0.6 mg/dL (0.2-1.3); Blood Urea Nitrogen 14 mg/dL (7-17); Carbon Dioxide 28 mmol/L (22-32); Chloride 103 mmol/L (98-107); Estimated Glomerular Filt Rate > 60.0 mL/min (>60); Globulin 3.8 g/dL (1.7-4.1); Glucose 87 mg/dL (70-100); HEMOLYSIS < 15 (0-50); Potassium 4.6 mmol/L (3.4-5.1); Sodium 138 mmol/L (137-145); Total Protein 8.3 g/dL (6.3-8.2)
== END ==
PROVIDERS: PCP Family Medicine; Referring Provider Psychiatry & Neurology Neurology; Visit Provider Psychiatry & Neurology Neurology
DX: G25.82 Stiff-man syndrome (principal); R76.0 Raised antibody titer; E03.9 Hypothyroidism, unspecified
CPT/HCPCS: 36415; 80053; 85025

== ENCOUNTER → 2021-01-11 14:28 | Outpatient (CLI) | payer OTHER, SELFPAY ==
[2021-01-11 15:44] LABS: Add Manual Diff / Slide Review NO; Basophils Absolute Auto 0 /uL (0-100); Basophils Percent Auto 0.6 % (0-2); Eosinophils Absolute Auto 100 /uL (0-450); Eosinophils Percent Auto 1.7 % (2-4); Hematocrit 39.5 % (36-46); Hemoglobin 13.4 g/dL (12.0-16.0); Lymphocytes Absolute Auto 1500 /uL (1100-4500); Lymphocytes Percent Auto 43.5 % (25-40); Mean Corpuscular Hemoglobin 30.5 PG (26-34); Mean Corpuscular Volume 89.7 fL (80-100); Monocytes Absolute Auto 300 /uL (0-900); Monocytes Percent Auto 9.4 % (3-14); Neutrophils Absolute Auto 1500 /uL (1500-7000); Neutrophils Percent Auto 44.8 % (50-75); Platelet Count 190 X10^3/uL (150-400); Red Cell Distribution Width 12.9 % (11.6-14.8); White Blood Cell Count 3.4 X10^3/uL (4.5-11.0)
[2021-01-11 16:35] LABS: Alanine Aminotransferase 29 IU/L (<35); Albumin 4.6 g/dL (3.5-5.0); Albumin Globulin Ratio 1.2 (1.0-2.8); Alkaline Phosphatase 56 U/L (38-126); Aspartate Aminotransferase 40 IU/L (14-36); BUN Creatinine Ratio 24.1 (6-22); Bilirubin Total 0.4 mg/dL (0.2-1.3); Blood Urea Nitrogen 13 mg/dL (7-17); Carbon Dioxide 36 mmol/L (22-32); Chloride 102 mmol/L (98-107); Estimated Glomerular Filt Rate > 60.0 mL/min (>60); Glucose 99 mg/dL (70-100); HEMOLYSIS < 15 (0-50); Potassium 4.5 mmol/L (3.4-5.1); Sodium 140 mmol/L (137-145); Total Protein 8.6 g/dL (6.3-8.2)
[2021-01-12 06:11] LABS: Immunoglobulin A 165 mg/dL (87-352); Immunoglobulin G, Quantitative 1978 mg/dL (586-1602); Immunoglobulin M, Quantitative 100 mg/dL (26-217)
== END ==
PROVIDERS: PCP Family Medicine; Referring Provider Psychiatry & Neurology Neurology; Visit Provider Psychiatry & Neurology Neurology
DX: G25.82 Stiff-man syndrome (principal); R76.0 Raised antibody titer; R27.0 Ataxia, unspecified; E03.9 Hypothyroidism, unspecified
CPT/HCPCS: 80053; 82784; 85025

== ENCOUNTER → 2021-03-07 13:42 | Outpatient (CLI) | payer OTHER, SELFPAY ==
--- NOTE | 2021-03-07 13:43 | DI.US.S_ITS ---
PROCEDURE: US PELVIC COMPLETE INDICATIONS: UTERINE FIBROID STABILITY TECHNIQUE: Real-time scanning was performed of the pelvic organs, with image documentation. Additional endovaginal scanning was necessary due to incomplete visualization of the adnexal and endometrial structures by transabdominal scanning. COMPARISON: [facility], , US PELVIC COMPLETE, 11/26/2017, 8:25. FINDINGS: Uterus: Uterus is normal in size at 9.5 x 7.7 x 8.3 cm. Uterus is retroverted. Uterine echotexture is heterogeneous. Redemonstration of large, heterogeneous intramural/submucosal fibroid noted in the uterine fundus. It measures 7.2 x 5.7 x 7.9 cm, previously 5.4 x 5.0 x 7.5 cm. The endometrium is not well visualized secondary to adjacent large fibroid. Ovaries: Bilateral ovaries not seen on today's study. Other: No pathologic free abdominal or pelvic fluid. IMPRESSION: Interval increase in size of large intramural/submucosal uterine fibroid now measuring 7.2 x 5.7 x 7.9 cm, previously 5.4 x 5.0 x 7.5 cm. Bilateral ovaries were not visualized on today's exam. Dictated by: Cheng Barnes M.D. on 03/07/2021 at 17:11 Approved by: Cheng Barnes M.D. on 03/07/2021 at 17:15
== END ==
PROVIDERS: PCP Family Medicine; Referring Provider Family Medicine; Visit Provider Family Medicine
DX: D25.1 Intramural leiomyoma of uterus (principal); D25.0 Submucous leiomyoma of uterus
CPT/HCPCS: 76830; 76856

== ENCOUNTER → 2021-06-28 15:08 | Outpatient (CLI) | payer OTHER, SELFPAY ==
--- NOTE | 2021-06-28 15:09 | DI.RAD.S_ITS ---
PROCEDURE: XR FINGER RT MIN 2V INDICATIONS: R index finger crush injury TECHNIQUE: AP hand, 2 views of the right 2nd finger(s) acquired. COMPARISON: None. FINDINGS: Bones: There is a small displaced fracture of the posterior osteophyte of the right 2nd distal phalanx. There may be a minimally displaced volar plate fracture as well. Soft tissues: No suspicious soft tissue calcifications. IMPRESSION: 1. Posterior osteophyte fracture of the right 2nd distal phalanx. 2. Questionable volar plate fracture. Dictated by: Yajaira Finnegan M.D. on 06/28/2021 at 15:30 Approved by: Yajaira Finnegan M.D. on 06/28/2021 at 15:31
== END ==
PROVIDERS: PCP Family Medicine; Referring Provider Physician Assistant; Visit Provider Physician Assistant
DX: S62.630A Displaced fracture of distal phalanx of right index finger, initial encounter for closed fracture (principal); X58.XXXA Exposure to other specified factors, initial encounter
CPT/HCPCS: 73140

== ENCOUNTER 2022-08-10 18:53 | Emergency (ER) | payer OTHER, SELFPAY ==
[2022-08-10 18:59] VITALS: BP 133/63; PULSE 64; RESP 16; TEMP 36.2; O2SAT 100; BMI 25.8
== END 2022-08-10 19:49 | disposition left against medical advice (07) ==
PROVIDERS: Emergency Provider Emergency Medicine; PCP Psychiatry & Neurology Neurology
CPT/HCPCS: 99281

== ENCOUNTER 2023-08-28 12:34 | Emergency (ER) | payer OTHER, SELFPAY ==
[2023-08-28] VITALS (10 sets, daily range): BP systolic 124–159; BP diastolic 63–77; PULSE 63–72; RESP 12–16; TEMP 36.7; O2SAT 93–99; BMI 26.6
--- NOTE | 2023-08-28 12:38 | DI.RAD.S_ITS ---
PROCEDURE: XR SHOULDER LT MIN 2V INDICATIONS: Fall. Pain.? dislocation TECHNIQUE: 2 views of the shoulder were acquired. COMPARISON: None. FINDINGS: Bones: Comminuted, segmented fracture involving the left humeral neck/metaphysis. Soft tissues: No suspicious soft tissue calcifications. IMPRESSION: Proximal left humerus fracture. Dictated by: Aye Small MD, PhD on 08/28/2023 at 13:01 Approved by: Aye Small MD, PhD on 08/28/2023 at 13:02
[2023-08-28] MEDS: MORPHINE 4 MG/ML INJ IV (13:12)
--- NOTE | 2023-08-28 13:29 | ED.UPPEXIN ---
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 Patient does have intermittent falls today she was working in her garden lost balance and fell out onto her arm. Has pain at the shoulder itself with some deformity and bruising. Patient's does not think that she hit her head she denies headache or neck pain, no back pain. No chest pain or shortness of breath. No numbness or tingling or weakness in the hand. Denies injuries elsewhere. Denies any nausea or vomiting. No other GI urinary symptoms. Patient is not on any anticoagulation. She does use walking sticks to get around but not a walker. She lives with her they note that he works from home in his around regularly. Patient is quite uncomfortable she did receive fentanyl EN route with EMS. Related Data Home Medications Medication Instructions Recorded Confirmed levetiracetam 500 mg tablet 500 mg PO BID ##0 12/13/06/28/21 (Keppra) baclofen 10 mg tablet 10 mg PO TID 04/02/19 06/28/21 citalopram 40 mg tablet 40 mg PO DAILY 04/02/19 06/28/21 diazepam 5 mg tablet 5 mg PO BID PRN 04/02/19 06/28/21 immun glob G(IgG)-gly-IgA ov50 See Rx Instructions IV .COMPLEX 04/02/19 06/28/21 [Gammagard Liquid] Previous Rx's Medication Instructions Recorded levothyroxine 200 mcg tablet See Rx Instructions .Route 10/31/21 .COMPLEX #90 tabs oxycodone 5 mg tablet See Rx Instructions .Route 08/28/23 .COMPLEX PRN pain #20 tabs Allergies Allergy/AdvReac Type Severity Reaction Status Date / Time grass pollen Allergy Mild eye Verified 08/28/23 12:41 swelling Review of Systems Review of Systems ROS Unobtainable: All systems reviewed & are unremarkable except as noted in HPI and below Patient History Medical History Increased urinary frequency Sinusitis, acute Uterine fibroid Stiff person syndrome Cervical cancer screening Vision disorder Balance disorder Seizures Migraines Headache Shoulder pain Fractures Foot pain Chronic back pain Ankle pain Mumps Chicken pox Retinal tear 4th nerve palsy Ovarian cyst Heavy menstrual period Vitamin deficiency Epilepsy Hypothyroidism (acquired) Surgical History Anesthesia History of surgery Fibroid tumor H/O brain surgery (~1990) Family History Father No problems noted. Mother Diabetes mellitus Social History Smoking Status: Never smoker alcohol intake: current (1 drink/ wk ) substance use type: does not use Smoking Status: Never smoker alcohol intake frequency: holidays/special occasions only Substance Use Type: does not use Exam Narrative Exam Narrative: GENERAL: Alert and oriented x three, female in moderate distress. HEENT: Head normocephalic, atraumatic, EOMI, pupils reactive, face symmetric, moist mucous membranes NECK: Supple, full range of motion, no cervical vertebral tenderness. Full range of motion. CARDIOVASCULAR: Regular rate and rhythm without murmurs, rubs or gallops. RESPIRATORY: Breath sounds equal bilaterally, no wheezes rales or rhonchi. ABDOMEN: Soft, nontender. Normoactive bowel sounds all 4 quadrants. No guarding or rebound, rigidity, no mass : No CVA tenderness EXTREMITIES: Decreased range of motion of the left shoulder, there is a abrasion over the shoulder does appear somewhat anterior. Patient has no other bony tenderness on her left upper extremity, 2+ radial pulse, normal sensation throughout all 5 fingers with cap refill less than 2 seconds, normal flexion-extension of the wrist and fingers as well as adduction and abduction, no clubbing or edema. Neurovascularly intact. No other bony tenderness on exam. NEUROLOGICAL: Cranial nerves II through XII grossly intact. Moving all extremities SKIN: Warm, dry, no petechiae, no rashes or lesions. Initial Vital Signs Initial Vital Signs: Vital Signs Pulse Rate 69 08/28/23 12:37 Blood Pressure 148/71 H 08/28/23 12:37 Course Orders Ordered: Discontinued Medications Baclofen (Baclofen 10 Mg Tablet) 20 mg PO NOW ONE Stop: 08/28/23 15:18 Last Admin: 08/28/23 15:22 Dose: 20 mg Documented By: SB Hydromorphone HCl (Hydromorphone 1 Mg Inj) 1 mg IV NOW ONE Stop: 08/28/23 13:47 Last Admin: 08/28/23 13:50 Dose: 1 mg Documented By: PHILLY Morphine Sulfate (Morphine 4 Mg/Ml Inj) 4 mg IV NOW ONE Stop: 08/28/23 13:07 Last Admin: 08/28/23 13:12 Dose: 4 mg Documented By: SB Vital Signs Vital signs: Vital Signs - 8 hr 08/28/23 12:38 Temperature 98.0 F Pulse Rate 70 Respiratory Rate 12 Blood Pressure 148/71 H Pulse Oximetry 96 Oxygen Delivery Method Room Air MDM - Extremity Injury (Upper) Imaging Data Extremity x-ray #1: Radiologist's Impression: [address] [address] XRay Report Signed Patient: Sam Jackson MR#: [id number] : 1960 Acct:[id number] Age/Sex: 63 / F Date of Service: 08/28/23 Loc: ED Accession Number: [id number] Procedure: XR shoulder LT min 2V Ordering Provider: Roberta Guevara D.O. PROCEDURE: XR SHOULDER LT MIN 2V INDICATIONS: Fall. Pain.? dislocation TECHNIQUE: 2 views of the shoulder were acquired. COMPARISON: None. FINDINGS: Bones: Comminuted, segmented fracture involving the left humeral neck/metaphysis. Soft tissues: No suspicious soft tissue calcifications. IMPRESSION: Proximal left humerus fracture. Dictated by: Aye Small MD, PhD on 08/28/2023 at 13:01 Approved by: Aye Small MD, PhD on 08/28/2023 at 13:02 CT UE: Radiologist's Impression: [address] [address] [address] Scan Report Signed Patient: Sam Jackson MR#: [id number] : 1960 Acct:[id number] Age/Sex: 63 / F Date of Service: 08/28/23 Loc: ED Accession Number: [id number] Procedure: CT UE LT wo con Ordering Provider: Roberta Guevara D.O. PROCEDURE: CT UE LT WO CON INDICATIONS: shoulder fracture/appears very anterior TECHNIQUE: Noncontrast 0.75 mm thick sections acquired from the acromioclavicular joint to the inferior scapula, with coronal and sagittal reformatting. COMPARISON: [facility], CR, XR SHOULDER LT MIN 2V, 08/28/2023, 12:41. FINDINGS: Image quality: Excellent. Bones: Acute comminuted fracture involving proximal left humeral shaft is seen with fracture lines extending to both greater and lesser tuberosities. Anterior angulation at fracture site is noted. There is superior and anterolateral migration of proximal humeral shaft in relation to humeral head. Laterally displaced greater tuberosity fragments are seen. Antral medial displacement of lesser tuberosity fragments are also noted. There is up to 1.1 cm impaction and overlapping at fracture site. No other fracture is seen. No dislocation. Nxct-mm-ezppxcvd acromioclavicular joint and glenohumeral joint osteoarthritic changes are seen. The visualized left ribs are intact. No suspicious bony lesions. Soft tissues: There is moderate to large glenohumeral joint effusion, no calcified intra-articular loose bodies. No gross full-thickness rotator cuff tendon rupture. Sagittal images shows no significant rotator cuff muscle atrophy. No abnormal soft tissue calcifications. No axillary lymphadenopathy by size criteria. Visualized left lung field is clear. IMPRESSION: 1. Acute comminuted, impacted and displaced left proximal humeral shaft fracture with extension to involve both greater and lesser tuberosities as well as displaced tuberosity fragments as described above. There is also anterior angulation at proximal humeral shaft fracture site. No dislocation. No other fracture. 2. Sacy-az-tjxnfnon left shoulder joint osteoarthritis. No suspicious bony lesions. 3. Moderate left glenohumeral joint effusion. No calcified intra-articular loose bodies. No gross full-thickness rotator cuff tendon rupture or significant rotator cuff muscle atrophy. Dictated by: Neftali Alford M.D. on 08/28/2023 at 14:45 Approved by: Neftali Alford M.D. on 08/28/2023 at 14:49 MDM Narrative Medical decision making narrative: X-ray imaging shows fracture of the left proximal humeral head. Patient does appear quite anterior could be the more distal portion based on x-ray imaging but we will obtain CT to rule out dislocation. Patient is neurovascularly intact. CT imaging shows comminuted, impacted and displaced left proximal humeral shaft fracture with the extension involving greater and lesser tuberosities as well as displaced tuberosity fragments anterior angulation at proximal humerus shaft site fracture no dislocation no other fracture, qgmk-mr-[id number] left shoulder joint osteoarthritis, moderate left glenohumeral joint effusion no calcified intra-articular loose bodies. No gross full-thickness rotator cuff tendon rupture significant rotator cuff atrophy. Patient additional dose of pain medication. Has been placed sling. Continues to be neurovascularly intact. Did discuss if patient would be able to return home she uses walking sticks to get around but her and her state that he is there regularly and that they do not feel she would require rehab or [facility]/SNF Discharge Plan Departure Patient Disposition: Home Clinical Impression: Closed fracture of proximal end of left humerus Instructions: DI for Humeral Fracture Activity Restrictions/Additional Instructions: Follow up with Orthopedic surgery, call tomorrow to set up follow up appointment. You may take Tylenol up to a 1000 mg every 6 hours as needed. If in adequate you can take oxycodone 1-2 tablets every 6 hours. This medication can make you sleepy do not drive, perform hazardous activities or make any major decisions while taking it. This medication will make you constipated please take a stool softener once to twice daily until stools are soft and regular. You may continue with your regular muscle relaxers. These medications in combination can make you sleepy so use caution. Prescription sent to [facility] Splint Care: Keep splint clean and dry. Elevated affected body part to decrease swelling. OK to use ice pack on the affected body part. Use for 15-20 minutes each time, for 5-6x per day. If you develop worsening pain, numbness, tingling, discoloration of the affected body part, you may adjust the sling as needed, and either see your doctor for an urgent re-assessment, or return to the Emergency Department. Return to the Emergency Department for any new or worsening symptoms. Prescriptions: New oxycodone 5 mg tablet See Rx Instructions .ROUTE .COMPLEX PRN (Reason: pain) Qty: 20 0RF Rx Instructions: You may take 1-2 tablets p.o. q.i.d. PRN pain. No Action levetiracetam [Keppra] 500 MG tablet 500 mg PO BID Qty: 0 levothyroxine 200 mcg tablet See Rx Instructions .ROUTE .COMPLEX Qty: 90 3RF Dose Instruction: take 1 tablet by mouth once daily Rx Instructions: take 1 tablet by mouth once daily diazepam 5 mg tablet 5 mg PO BID PRN immun glob G(IgG)-gly-IgA ov50 See Rx Instructions IV .COMPLEX Rx Instructions: IV 2 days over 4 wks; citalopram 40 mg tablet 40 mg PO DAILY baclofen 10 mg tablet 10 mg PO TID Referrals: Randal Reyna MD [Physician] - Alexa Flores MD [Primary Care Provider] - Stand Alone Forms: Patient Portal/API
--- NOTE | 2023-08-28 13:37 | DI.CT.S_ITS ---
PROCEDURE: CT UE LT WO CON INDICATIONS: shoulder fracture/appears very anterior TECHNIQUE: Noncontrast 0.75 mm thick sections acquired from the acromioclavicular joint to the inferior scapula, with coronal and sagittal reformatting. COMPARISON: [facility], CR, XR SHOULDER LT MIN 2V, 08/28/2023, 12:41. FINDINGS: Image quality: Excellent. Bones: Acute comminuted fracture involving proximal left humeral shaft is seen with fracture lines extending to both greater and lesser tuberosities. Anterior angulation at fracture site is noted. There is superior and anterolateral migration of proximal humeral shaft in relation to humeral head. Laterally displaced greater tuberosity fragments are seen. Antral medial displacement of lesser tuberosity fragments are also noted. There is up to 1.1 cm impaction and overlapping at fracture site. No other fracture is seen. No dislocation. Nnum-cg-pzhuybmm acromioclavicular joint and glenohumeral joint osteoarthritic changes are seen. The visualized left ribs are intact. No suspicious bony lesions. Soft tissues: There is moderate to large glenohumeral joint effusion, no calcified intra-articular loose bodies. No gross full-thickness rotator cuff tendon rupture. Sagittal images shows no significant rotator cuff muscle atrophy. No abnormal soft tissue calcifications. No axillary lymphadenopathy by size criteria. Visualized left lung field is clear. IMPRESSION: 1. Acute comminuted, impacted and displaced left proximal humeral shaft fracture with extension to involve both greater and lesser tuberosities as well as displaced tuberosity fragments as described above. There is also anterior angulation at proximal humeral shaft fracture site. No dislocation. No other fracture. 2. Ttzq-rk-wtrkgrdu left shoulder joint osteoarthritis. No suspicious bony lesions. 3. Moderate left glenohumeral joint effusion. No calcified intra-articular loose bodies. No gross full-thickness rotator cuff tendon rupture or significant rotator cuff muscle atrophy. Dictated by: Neftali Alford M.D. on 08/28/2023 at 14:45 Approved by: Neftali Alford M.D. on 08/28/2023 at 14:49
[2023-08-28] MEDS: HYDROMORPHONE 1 MG INJ IV (13:50)
[2023-08-28] MEDS: BACLOFEN 10 MG TABLET 20 MG PO (15:22)
== END 2023-08-28 15:25 | disposition home or self-care (01) ==
PROVIDERS: Emergency Provider Emergency Medicine; PCP Psychiatry & Neurology Neurology
DX: S42.202A Unspecified fracture of upper end of left humerus, initial encounter for closed fracture (principal); W18.30XA Fall on same level, unspecified, initial encounter
CPT/HCPCS: 73030; 73200; 96374; 96375; 99284; J1170; J2270

== ENCOUNTER 2023-09-05 08:25 | Day surgery (SDC) | payer BC, SELFPAY ==
[2023-09-02 14:20] VITALS: BMI 26.9
--- NOTE | 2023-09-05 | DI.RAD.S_ITS ---
PROCEDURE: XR SHOULDER LT MIN 2V INDICATIONS: PROXIMAL HUMERUS FRACTURE TECHNIQUE: 4 intraoperative views of the shoulder were acquired. COMPARISON: [facility], CR, XR SHOULDER LT MIN 2V, 08/28/2023, 12:41. FINDINGS: Intraoperative fluoroscopic images demonstrate fixation of left proximal humeral fracture. IMPRESSION: Intraoperative fluoroscopic images demonstrating left proximal humeral fracture fixation. Please see operative report for full details. Approved by: Amie Tate M.D.,Ph.D. on 09/05/2023 at 22:06
[2023-09-05] MEDS: LACTATED RINGERS 1,000 ML 42 ML IV ×2 (08:41→12:25)
[2023-09-05] MEDS: ACETAMINOPHEN 325 MG TABLET 975 MG PO (08:42)
[2023-09-05 08:58] VITALS: BMI 26.6
[2023-09-05 09:04] VITALS: BP 131/80; PULSE 76; RESP 17; TEMP 36.6; O2SAT 98
--- NOTE | 2023-09-05 10:00 | PM.PREOP ---
Pre-operative Note Interval Note History & Physical reviewed/Exam performed by Physician: Yes Changes to H&P: No
--- NOTE | 2023-09-05 11:14 | SUR.PREOP ---
Block start time [1107. Time out done at 1059 Monitoring initiated and maintained throughout procedure. Oxygen and medications given per anesthesiologist instructions. Patient remained stable throughout procedure, no adverse reactions noted. Block end time 1105.
[2023-09-05] MEDS: CEFAZOLIN 2 GM/100 ML PREMIX 100 ML IV (11:30)
[2023-09-05] MEDS: LIDOCAINE 1% W/EPI 20 ML INJ (11:49)
--- NOTE | 2023-09-05 11:51 | SUR.OPER ---
Beach chair with Schlein shoulder positioner. Lower body on padded OR bed. Head in foam padded head cradle, secured with straps. Non-operative arm secured <90 degrees abduction on armboard. Pillow under knees. Safety belt at thigh. Cloth tape over blanket over lower legs.
--- NOTE | 2023-09-05 13:10 | PM.OP.1 ---
Operative Date/Time/Diagnoses Date of procedure: 09/05/23 Time of procedure: 11:30 Pre-op diagnosis: Left 3 part proximal humerus fracture Post-op diagnosis: same Procedure & Clinicians Procedure: Open reduction internal fixation of a left 3 part proximal humerus fracture Same procedure as scheduled: Yes Indications: Displaced proximal humerus fracture involving the neck as well as the greater tuberosity of the left proximal humerus Surgeon: Randal Reyna Working Supervisor: Matthew Allen Anesthesia Type: General and Peripheral nerve block Operative Notes Findings: Displaced comminuted left proximal humerus fracture with displacement of the humeral neck as well as comminution of the greater tuberosity with displacement of the greater tuberosity. No sign of any lesser tuberosity fracture. Closure Type: primary Applied: implant(s) (Arthrex proximal humerus plate) Estimated Blood Loss (mL): 50 Procedure in detail: On date of service, patient was met in the holding area where her operative site was signed and witnessed by the OR staff. Surgeries once again discussed with patient any remaining questions or concerns she had were answered fully. Patient received her antibiotics preoperatively as well as a nerve block. Patient was taken back to the operating theater and placed on the operating table in a supine position. Great care was taken to ensure that all bony prominences were appropriately padded. Patient was placed into a beach chair position at about 30?. Head and neck were also appropriately positioned and secured. Time-out had previously been performed verifying patient's name, procedure, and operative site. Left arm was prepped and draped in the normal sterile fashion. A deltopectoral approach was performed. Ten blade was used to incise through skin and fascial tissue. Electrocautery used to achieve hemostasis. Two retractors were placed and continued sharp dissection was performed. Pickups and tenotomies were used to identify the cephalic vein which was then freed and retracted with the pectoralis. Deltoid was retracted medially giving us good visualization of the proximal humerus. Biceps tendon was identified and was dissected through the bicipital groove allowing us to identify the lesser tuberosity which was not fractured. The greater tuberosity was fractured in multiple pieces with 1 of the pieces being rather large. Sutures were placed around the pieces of the greater tuberosity at the bone-tendon interface allowing us to be able to mobilize the tuberosity fragments. The shaft was displaced from the humeral neck as well. The head and neck were then reduced onto the shaft and held provisionally with K-wires. Next the greater tuberosity was reduced back to the head and then secured with K-wires. C-arm was brought in to verify the reduction of the head and the greater tuberosity onto the shaft. Once we were satisfied with this, a plate was placed and C-arm was used to verify plate positioning as well. The plate was initially secured distally. Once the tuberosities were reduced proximal screws were placed securing the plate to the tuberosity as well as the humeral head. Final distal screws were placed. Throughout placement of screws C-arm was brought in for multiple views to make sure there was continuation of reduction as well as appropriate placement of plate and screw length. Final x-rays were obtained showing a well reduced humeral head also showing that none of the screws were close to being intra-articular. The wound was then copiously irrigated. It was closed in a layered fashion. The wound was cleaned, dried, and dressed. Patient was extubated and taken to the PACU in stable condition. The assistance of a skilled surgical territory manager was necessary during this procedure for reducing the fracture, positioning of the arm and helping with the overall reduction and fixation of the fracture. The case would have been much longer and more difficult had an family readiness support assistant not been available. The services of the surgical territory manager were necessary for this case. Complications: none Post-operative Condition: stable Disposition: PACU Plan for aftercare: No restrictions range of motion. No lifting more than 2-3 lb.
[2023-09-05 13:40] VITALS: BP 116/72; PULSE 79; RESP 17; TEMP 36.2; O2SAT 94
[2023-09-05 13:45] VITALS: BP 127/69; PULSE 77; RESP 19; TEMP 36.2; O2SAT 94
[2023-09-05 13:52] VITALS: BP 126/68; PULSE 88; RESP 15; TEMP 36.2; O2SAT 95
[2023-09-05 13:56] VITALS: BP 124/64; PULSE 73; RESP 17; TEMP 36.2; O2SAT 95
== END 2023-09-05 14:18 | disposition home or self-care (01) ==
PROVIDERS: PCP Psychiatry & Neurology Neurology; Referring Provider Orthopaedic Surgery; Visit Provider Orthopaedic Surgery
PROC: (CPT 23615; principal; 2023-09-05 10:00)
DX: S42.292A Other displaced fracture of upper end of left humerus, initial encounter for closed fracture (principal); G89.18 Other acute postprocedural pain
CPT/HCPCS: 23615; 64450; 73030; 76000; C1713; J0690; J1100; J1885; J2250; J2405; J2704; J3010

== ENCOUNTER → 2023-10-17 09:11 | Outpatient (CLI) | payer OTHER, SELFPAY ==
[2023-10-19 16:40] LABS: Vitamin B6 7.4 ug/L (3.4-65.2)
== END ==
PROVIDERS: PCP Psychiatry & Neurology Neurology; Referring Provider Physical Medicine & Rehabilitation; Visit Provider Physical Medicine & Rehabilitation
DX: M79.2 Neuralgia and neuritis, unspecified (principal)
CPT/HCPCS: 36415; 84207